=== PATIENT | female | born 1945 | race Caucasian/White ===

== ENCOUNTER 2019-09-09 11:49 | Inpatient (IN) | payer MEDICARE, OTHER, SELFPAY ==
[2019-09-09 11:54] VITALS: BP 163/58; PULSE 71; RESP 18; TEMP 36.9; O2SAT 98
--- NOTE | 2019-09-09 12:16 | DI.RAD_ITS ---
EXAM: XR HIP LT COMPLETE AP PELVIS INDICATION: s/p fall, r/o fracture. COMPARISON: No exams were available for comparison TECHNIQUE: 2D digital imaging was performed. FINDINGS: There is a subcapital fracture of the left femur. There is some impaction but only slight angulatio n. No additional fractures are seen. The hip joint spaces are well maintained. There is mild bilat eral acetabular spurring. IMPRESSION: Subcapital fracture of the left femur with mild impaction.
--- NOTE | 2019-09-09 12:16 | DI.RAD_ITS ---
EXAM: XR CHEST 2V PA LATERAL INDICATION: possible hip fracture, r/o acute disease. COMPARISON: No exams were available for comparison TECHNIQUE: 2D digital imaging was performed. FINDINGS: Heart size is normal. The aorta is mildly tortuous. Lungs show mild scarring. No infiltrate, effu tomás or pneumothorax seen. There are no thoracic compression fractures. IMPRESSION: No acute abnormality.
--- NOTE | 2019-09-09 12:19 | ED.GENADUL_ITS ---
Discharge Plan Disposition Patient Disposition: [facility] INPATIENT Condition: Stable Discharge Details Chief Complaint: Orthopedic Clinical Impression: Fracture of left hip Admit Date/Time: 09/09/19 14:39 Admit Provider: Uzair Lara Attending Provider: Uzair Lara Primary Care Provider: Josy Oliver ED Provider: Chloe Voss Discharge Data Discharge Date/Time-TO BE ENTERED AT DEPARTURE: 09/09/19 15:41 Discharge Physician: Chloe Voss Medical Decision Making 1200 -- [id number] female presents with left hip pain after fall while walking her dog prior to arrival. She is complaining of pain in her left groin. Vitals within normal limits. She appears in no acute distress. She has pain with any slight movement in her left groin with very minimal tenderness palpation in this area. She is neurovascularly intact. No obvious deformities. No left lower extremity shortening or external rotation. Patient declines dose of narcotic pain medication. Will give a dose of Tylenol and sent for left hip and pelvis x-ray as well as chest x-ray. 1310 --hip x-ray notes a left femoral neck fracture. Chest x-ray negative. Patient ate cookies on the way to the ER. Case discussed with Dr. Williamson who will take patient to the operating room tomorrow. Case d/w Dr. Lara who accepts pt for admission. Screening labs reviewed and unremarkable. EKG notes a rate of 77, sinus with no acute ST ischemic changes. Medical Records Medical records reviewed: Yes I reviewed the patient's medical records. Imaging Data Radiologic Study: Radiologist's impression: XR CHEST 2V PA LATERAL INDICATION: possible hip fracture, r/o acute disease. COMPARISON: No exams were available for comparison TECHNIQUE: 2D digital imaging was performed. FINDINGS: Heart size is normal. The aorta is mildly tortuous. Lungs show mild scarring. No infiltrate, effusion or pneumothorax seen. There are no thoracic comp ression fractures. IMPRESSION: No acute abnormality. XR HIP LT COMPLETE AP PELVIS INDICATION: s/p fall, r/o fracture. COMPARISON: No exams were available for comparison TECHNIQUE: 2D digital imaging was performed. FINDINGS: There is a subcapital fracture of the left femur. There is some impaction but only slight angulation. No additional fractures are seen. The hip joint spaces are well maintained. There is mild bilateral acetabular spurring. IMPRESSION: Subcapital fracture of the left femur with mild impaction. Lab Data Lab results reviewed: Yes I reviewed the patient's lab results. Labs: Laboratory Tests Range/Units 09/09/19 09/09/19 13:45 13:45 WBC (4.4-10.8) k/cumm 10.91 H RBC (4.00-5.20) m/cumm 4.27 Hgb (12.0-15.5) g/dL 12.0 Hct (36.0-46.0) % 37.1 MCV (80-95) fL 86.9 MCH (27.0-33.0) pg 28.1 MCHC (32.0-36.0) g/dL 32.3 RDW (11.7-14.6) % 13.7 Plt Count (130-400) x1000/uL 214 MPV (8.0-11.0) fL 9.1 Immature Gran % 0.2 Neutrophils % 84.1 Lymphocytes % 9.3 Monocytes % 6.0 Eosinophils % 0.1 Basophils % 0.3 Absolute Neutrophils (1.2-6.7) k/cumm 9.18 H Absolute Lymphocytes (1.2-3.4) k/cumm 1.01 L Absolute Monocytes (0.11-0.7) k/cumm 0.65 Absolute Eosinophils (0.0-0.7) k/cumm 0.01 Absolute Basophils (0.0-0.2) k/cumm 0.03 Sodium (136-145) mmol/L 141 Potassium (3.5-5.1) mmol/L 4.5 Chloride (98-107) mmol/L 105 Carbon Dioxide (21.0-32.0) mmol/L 28.9 Anion Gap (3-11) mmol/L 7.1 BUN (7-18) mg/dL 20 H Creatinine (0.55-1.02) mg/dL 0.97 Estimated GFR/1.73 m2 (mL/min/1.73m2) 55.83 Glucose (70-100) mg/dL 144 H Calcium (8.5-10.1) mg/dL 9.0 Magnesium (1.8-2.4) mg/dL 1.9 Total Bilirubin (0.2-1.0) mg/dL 0.3 AST (15-37) U/L 21 ALT (14-59) U/L 25 Alkaline Phosphatase (46-116) U/L 56 Troponin I (0.00-0.06) ng/mL < 0.05 Total Protein (6.4-8.2) g/dL 6.8 Albumin (3.4-5.0) g/dL 3.6 ECG Data Attestation: I personally reviewed and interpreted this ECG (s) as follows: Interpretation: rate of 77bpm, sinus, PACs. No acute ST elevation or depression. AK 134. QTc 444. QRS 88. HPI General Mode of arrival: ambulatory . Date/Time Provider Initiated Documentation: 09/09/19 11:52 . Limitations to Documentation: no limitations . Information obtained by: patient . HPI Narrative: Pt is a 74yo F who presents to the ED w/ a c/o left hip pain after fall while walking her dog. Patient states she was walking her dog when she slipped on the ground onto her left hip. She is complaining of pain in her left groin. She denies head injury, LOC, vomiting, chest pain, shortness of breath, neck pain or back pain. She denies any other extremity pain or injury. She has not taken any medication for pain. Related Data Home Medications Medication Instructions Recorded Confirmed calcium carbonate-vitamin D3 1 ea PO DAILY 03/03/14 09/09/19 cholecalciferol (vitamin D3) 800 unit PO DAILY 03/03/14 09/09/19 [Vitamin D] ibuprofen 200 mg PO PRN 03/03/14 09/09/19 Allergies Allergy/AdvReac Type Severity Reaction Status Date / Time Tetanus Vaccines and Toxoid AdvReac Intermediate FEVER Unverified 09/09/19 11:58 aspirin AdvReac Unknown BLEEDING Unverified 09/09/19 11:58 SALMON OIL-1000 AdvReac Intermediate GI Uncoded 09/09/19 11:58 INTOLERANCE General Stated Complaint: Orthopedic RAJESH: 3 Review of Systems All systems reviewed & are unremarkable except as noted in HPI and below Constitutional Constitutional: Reports as per HPI, Denies chills and Denies fever(s) Eyes Eyes: Denies blurry vision ENT Ears, Nose, Mouth, and Throat: Denies dizziness, Denies sore throat and Denies throat swelling Cardiovascular Cardiovascular: Denies chest pain and Denies dyspnea Respiratory Respiratory: Denies cough and Denies dyspnea Gastrointestinal Gastrointestinal: Denies abdominal pain, Denies diarrhea and Denies vomiting Genitourinary Genitourinary: Denies hematuria and Denies dysuria Musculoskeletal Musculoskeletal: Denies back pain, Denies numbness and Reports other (Left groin pain.) Integumentary/Breasts Skin/Breast: Denies lesions and Denies rash Neurologic Neurologic: Denies dizziness, Denies focal weakness and Denies numbness Allergic/Immunologic Allergic/Immunologic: Denies throat swelling [facility] Medical History No significant past medical history (Acute) Surgical History History of knee surgery (Acute) History of tonsillectomy (Chronic) Family History Mother , 46 Lymphoma Father , 74 Neoplasm PANCREATIC Pancreatic cancer Maternal Grandfather , 80 No problems noted. Paternal Grandfather Stomach cancer Maternal Grandmother Stroke Paternal Grandmother , 70 Heart disease Social History Smoking/Tobacco Use Status: Former Tobacco Use Tobacco: How many years used: 10 Second Hand Exposure: No Alcohol Intake: current Alcohol Intake frequency: holidays/special occasions only Alcohol type: wine Drug use: Never Substance use type: does not use Caregiver/Support person: No Household members: spouse Housing: house Communication Needs: None Pets and animals: Yes Pets and animals: cat(s) and dog(s) Sexually active: No Do you think of yourself as: straight/heterosexual Current gender identity: female What is your relationship status?: How often do you talk on the phone with friends or family?: three or more times per week How often do you get together with friends or relatives?: once per week How often do you attend lutheran or islam services?: decline to answer Do you belong to any clubs or organized social groups?: yes Panel score (0-1 are the most socially isolated patients): 3 What type of physical activity do you participate in: walking Duration: 45-60 minutes/day Frequency: daily Maribell/Jain: None Special maribell needs: No Seatbelt use: always Helmet use: Yes Helmet use: always 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 Do you feel safe at home: Yes Do you feel safe in your relationship?: Yes Exam Const General: cooperative, healthy appearing and no acute distress [facility] Head: normal to inspection Face and sinus: normal facial exam Eyes General: appearance normal, both eyes and all related structures Pupils: PERRL EOM: EOM intact bilaterally Neck Neck: normal visual inspection and No submandibular swelling Lymphatic: no lymphadenopathy noted Chest Chest: normal inspection of the chest, normal palpation of entire chest wall and no tenderness Resp Effort & Inspection: normal respiratory effort and able to speak in complete sentences Auscultation: clear to auscultation bilaterally Cardio Rate: regular rate Rhythm: regular rhythm GI Inspection: normal to inspection Palpation: soft, not firm, not rigid and nontender Auscultation: normal bowel sounds Back/Spine/Pelvis Cervical Spine: No cervical spinal tenderness Thoracic/Lumbar Spine: thoracic and lumbar spine normal to inspection, No thorac ic spinal tenderness and No lumbar spinal tenderness Pelvis: no pain with anterior-posterior compression and no pain with lateral compression Skin General skin exam: no rashes or lesions noted Neuro General: alert, awake and oriented x3 Cognition: normal cognition Speech: speech normal Motor: muscle tone normal throughout Sensory Exam: no sensory deficits noted Extrem General: normal to inspection, full ROM, normal capillary refill, no calf tenderness bilaterally and no edema Upper/lower leg/hip images: 1. Pain in this location with certain movements. Minimal tenderness to palpation of L groin. No evidence of ecchymosis, erythema, edema or open wounds. Limited range of motion due to pain. Other: Bilateral upper extremities and right lower extremity normal to inspection without pain with range of motion. Remainder of left lower extremity normal to inspection without tenderness to left thigh, left knee, left lower leg, ankle or foot. Bilateral DP/PT pulses intact. Psych Appearance: grossly normal Mental Status: mental status grossly normal Speech and Movement: speech and movement normal Affect: normal affect Course Vital Signs Vital signs: Vital Signs Temperature 98.4 F 09/09/19 11:54 Pulse 71 09/09/19 11:54 Respiratory Rate 18 09/09/19 11:54 Blood Pressure 163/58 H 09/09/19 11:54 Pulse Oximetry 98 09/09/19 11:54 Temperature 98.4 F 09/09/19 11:54 Temperature Source Temporal Artery Scan 09/09/19 11:54 Pulse 71 09/09/19 11:54 Respiratory Rate 18 09/09/19 11:54 Respiratory Effort Non-Labored 09/09/19 11:59 Blood Pressure 163/58 H 09/09/19 11:54 Blood Pressure Position Supine 09/09/19 11:54 Pulse Oximetry 98 09/09/19 11:54 Oxygen Delivery Method Room Air 09/09/19 11:54 Oxygen Flow Rate 0 09/09/19 11:54 Pain Level 8 09/09/19 11:54
[2019-09-09] MEDS: Acetaminophen 325 MG TAB 650 MG PO (12:23)
[2019-09-09] MEDS: Acetaminophen 325 MG TAB (12:36)
[2019-09-09 13:51] LABS: Abs Immature Grans 0.02 k/cumm (0.0-0.09); Absolute Basophil Count 0.03 k/cumm (0.0-0.2); Absolute Eosinophil Count 0.01 k/cumm (0.0-0.7); Absolute Monocyte Count 0.65 k/cumm (0.11-0.7); Absolute Neutrophil Count 9.18 k/cumm (1.2-6.7); Basophils % 0.3; Eosinophils % 0.1; HCT 37.1 % (36.0-46.0); Immature Grans % 0.2; Lymphocytes % 9.3; Mean Corp. HGB Concentration 32.3 g/dL (32.0-36.0); Mean Corpuscular Hemoglobin 28.1 pg (27.0-33.0); Mean Corpuscular Volume 86.9 fL (80-95); Mean Platelet Volume 9.1 fL (8.0-11.0); Neutrophils % 84.1; Platelet Count 214 x1000/uL (130-400); RBC 4.27 m/cumm (4.00-5.20); RBC Distribution Width 13.7 % (11.7-14.6); White Blood Cell Count 10.91 k/cumm (4.4-10.8)
[2019-09-09 13:54] LABS: Absolute Lymphocyte Count 1.01 k/cumm (1.2-3.4)
[2019-09-09 14:07] VITALS: BP 158/62; PULSE 75; RESP 14; TEMP 37.2; O2SAT 94
[2019-09-09 14:09] LABS: ALT 25 U/L (14-59); AST 21 U/L (15-37); Albumin 3.6 g/dL (3.4-5.0); Alkaline Phosphatase 56 U/L (46-116); Anion Gap 7.1 mmol/L (3-11); BUN 20 mg/dL (7-18); Bilirubin, Total 0.3 mg/dL (0.2-1.0); CO2 28.9 mmol/L (21.0-32.0); CREATININE 0.97 mg/dL (0.55-1.02); Chloride 105 mmol/L (98-107); Estimated GFR 55.83 (mL/min/1.73m2); Glucose 144 mg/dL (70-100); Magnesium 1.9 mg/dL (1.8-2.4); Potassium 4.5 mmol/L (3.5-5.1); Sodium 141 mmol/L (136-145); Total Protein 6.8 g/dL (6.4-8.2)
[2019-09-09 14:11] LABS: Troponin I < 0.05 ng/mL (0.00-0.06)
[2019-09-09] MEDS: Normal Saline Flush 10 ML SYR IVP ×2 (14:15→18:15)
--- NOTE | 2019-09-09 14:31 | W.PM.PROGNOT ---
Date of Service Date of service: 09/09/19 Time of Service: 14:31 Objective Objective Clinical Data: Abnormal lab results 09/09/19 09/09/19 Range/Units 13:45 13:45 WBC 10.91 H (4.4-10.8) k/cumm Absolute Neutrophils 9.18 H (1.2-6.7) k/cumm Absolute Lymphocytes 1.01 L (1.2-3.4) k/cumm BUN 20 H (7-18) mg/dL Glucose 144 H (70-100) mg/dL Vital Signs Temperature 37.2 C 09/09/19 14:07 Temperature Source Skin 09/09/19 14:07 Pulse 75 09/09/19 14:07 Respiratory Rate 14 09/09/19 14:07 Respiratory Effort Non-Labored 09/09/19 11:59 Blood Pressure 158/62 H 09/09/19 14:07 Blood Pressure Position Supine 09/09/19 11:54 Pulse Oximetry 94 L 09/09/19 14:07 Oxygen Delivery Method Room Air 09/09/19 14:07 Oxygen Flow Rate 0 09/09/19 14:07 Pain Level 0 09/09/19 14:07 Intake & Output 09/08/19 09/09/19 09/09/19 23:59 11:59 23:59 Weight 65.6 kg Laboratory Results WBC 10.91 k/cumm (4.4-10.8) H 09/09/19 13:45 RBC 4.27 m/cumm (4.00-5.20) 09/09/19 13:45 Hgb 12.0 g/dL (12.0-15.5) 09/09/19 13:45 Hct 37.1 % (36.0-46.0) 09/09/19 13:45 MCV 86.9 fL (80-95) 09/09/19 13:45 MCH 28.1 pg (27.0-33.0) 09/09/19 13:45 MCHC 32.3 g/dL (32.0-36.0) 09/09/19 13:45 RDW 13.7 % (11.7-14.6) 09/09/19 13:45 Plt Count 214 x1000/uL (130-400) 09/09/19 13:45 MPV 9.1 fL (8.0-11.0) 09/09/19 13:45 Immature Gran % 0.2 09/09/19 13:45 Neutrophils % 84.1 09/09/19 13:45 Lymphocytes % 9.3 09/09/19 13:45 Monocytes % 6.0 09/09/19 13:45 Eosinophils % 0.1 09/09/19 13:45 Basophils % 0.3 09/09/19 13:45 Absolute Neutrophils 9.18 k/cumm (1.2-6.7) H 09/09/19 13:45 Absolute Lymphocytes 1.01 k/cumm (1.2-3.4) L 09/09/19 13:45 Absolute Monocytes 0.65 k/cumm (0.11-0.7) 09/09/19 13:45 Absolute Eosinophils 0.01 k/cumm (0.0-0.7) 09/09/19 13:45 Absolute Basophils 0.03 k/cumm (0.0-0.2) 09/09/19 13:45 Sodium 141 mmol/L (136-145) 09/09/19 13:45 Potassium 4.5 mmol/L (3.5-5.1) 09/09/19 13:45 Chloride 105 mmol/L (98-107) 09/09/19 13:45 Carbon Dioxide 28.9 mmol/L (21.0-32.0) 09/09/19 13:45 Anion Gap 7.1 mmol/L (3-11) 09/09/19 13:45 BUN 20 mg/dL (7-18) H 09/09/19 13:45 Creatinine 0.97 mg/dL (0.55-1.02) 09/09/19 13:45 Estimated GFR/1.73 m2 55.83 (mL/min/1.73m2) 09/09/19 13:45 Glucose 144 mg/dL (70-100) H 09/09/19 13:45 Calcium 9.0 mg/dL (8.5-10.1) 09/09/19 13:45 Magnesium 1.9 mg/dL (1.8-2.4) 09/09/19 13:45 Total Bilirubin 0.3 mg/dL (0.2-1.0) 09/09/19 13:45 AST 21 U/L (15-37) 09/09/19 13:45 ALT 25 U/L (14-59) 09/09/19 13:45 Alkaline Phosphatase 56 U/L (46-116) 09/09/19 13:45 Troponin I < 0.05 ng/mL (0.00-0.06) 09/09/19 13:45 Total Protein 6.8 g/dL (6.4-8.2) 09/09/19 13:45 Albumin 3.6 g/dL (3.4-5.0) 09/09/19 13:45
--- NOTE | 2019-09-09 15:46 | W.PM.HP.N ---
Assessment and Plan Assessment and plan (1) Subcapital fracture of left femur: Status: Acute Assessment and plan: Status post mechanical fall while walking her dog. She is scheduled for left hip replacement tomorrow with Dr. Williamson. IV Acetaminophen and morphine for pain. Place morales for comfort. She will be NPO after midnight in preparation for surgery tomorrow. Continue IV fluids overnight. Repeat H&H tomorrow morning. History of Present Illness History of Present Illness Chief Complaint: Left groin pain after fall. Narrative: Maribell Alexander is a 74 year old female otherwise healthy, who presented to the ED today after a fall while walking her dog. In the ED, her labs revealed mild leukocytosis. She had an x-ray of her left hip which showed a left femoral neck fracture. Chest x-ray was negative. The ER attending provider discussed her case with Dr. Williamson who is planning to take the patient to the OR tomorrow for Left hip replacement. She was admitted to the med/surg floor for further evaluation and management. At the time of her admission, she denies pain in the left hip/groin, she had acetaminophen in the ED which relieved her pain. She denies dizziness or lightheadedness, shortness of breath, coughing, wheezing, chest pain/pressure, palpitations, nausea, vomiting or diarrhea. She has a remote smoking history, she smoked in her 20s. She occasionally drinks alcohol, approximately 3 glasses of wine per month. She recently had cataract surgery. Review of Systems All systems reviewed & are unremarkable except as noted in HPI and below PFSH Medical History No significant past medical history (Acute) Surgical History History of knee surgery (Acute) History of tonsillectomy (Chronic) Family History Mother , 46 Lymphoma Father , 74 Neoplasm PANCREATIC Pancreatic cancer Maternal Grandfather , 80 No problems noted. Paternal Grandfather Stomach cancer Maternal Grandmother Stroke Paternal Grandmother , 70 Heart disease Social History Smoking/Tobacco Use Status: Former Tobacco Use Tobacco: How many years used: 10 Second Hand Exposure: No Alcohol Intake: current Alcohol Intake frequency: holidays/special occasions only Alcohol type: wine Drug use: Never Substance use type: does not use Caregiver/Support person: No Household members: spouse Housing: house Communication Needs: None Pets and animals: Yes Pets and animals: cat(s) and dog(s) Sexually active: No Do you think of yourself as: straight/heterosexual Current gender identity: female What is your relationship status?: How often do you talk on the phone with friends or family?: three or more times per week How often do you get together with friends or relatives?: once per week How often do you attend roman catholic or sabianism services?: decline to answer Do you belong to any clubs or organized social groups?: yes Panel score (0-1 are the most socially isolated patients): 3 What type of physical activity do you participate in: walking Duration: 45-60 minutes/day Frequency: daily Maribell/Buddhism: None Special maribell needs: No Seatbelt use: always Helmet use: Yes Helmet use: always 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 Do you feel safe at home: Yes Do you feel safe in your relationship?: Yes Meds Home Medications and Allergies Home Medications Medication Instructions Recorded Confirmed Type calcium carbonate-vitamin D3 1 ea PO DAILY 03/03/14 09/09/19 History cholecalciferol (vitamin D3) 800 unit PO DAILY 03/03/14 09/09/19 History [Vitamin D] ibuprofen 200 mg PO PRN 03/03/14 09/09/19 History Allergies Allergy/AdvReac Type Severity Reaction Status Date / Time Tetanus Vaccines and Toxoid AdvReac Intermediate FEVER Unverified 09/09/19 11:58 aspirin AdvReac Unknown BLEEDING Unverified 09/09/19 11:58 SALMON OIL-1000 AdvReac Intermediate GI Uncoded 09/09/19 11:58 INTOLERANCE Exam Narrative Exam Narrative: General: 74 year old female, laying in bed with knees bent, alert and oriented, in NAD. HEENT: normocephalic, atraumatic, pupils equal and round, EOMI, mucous membranes moist. Neck: supple, no JVD. Cardiovascular: heart has regular rate with occasional extra beat. She has a 1-2/6 murmur noted at the LSB. Respiratory: respirations even and unlabored, lung sounds clear to auscultation throughout. GI: normoactive bowel sounds, soft, nontender on palpation, nondistended. Extremities: No ecchymosis around the left hip/groin. +Discomfort on palpation. No edema to the lower extremities, pedal pulses palpable bilaterally. Results Labs Result diagrams: 09/09/19 13:45 09/09/19 13:45 Labs: Laboratory Results - last 24 hr 09/09/19 09/09/19 09/09/19 13:45 13:45 14:42 WBC 10.91 H RBC 4.27 Hgb 12.0 Cancelled Hct 37.1 Cancelled MCV 86.9 MCH 28.1 MCHC 32.3 RDW 13.7 Plt Count 214 MPV 9.1 Immature Gran % 0.2 Neutrophils % 84.1 Lymphocytes % 9.3 Monocytes % 6.0 Eosinophils % 0.1 Basophils % 0.3 Absolute Neutrophils 9.18 H Absolute Lymphocytes 1.01 L Absolute Monocytes 0.65 Absolute Eosinophils 0.01 Absolute Basophils 0.03 Sodium 141 Potassium 4.5 Chloride 105 Carbon Dioxide 28.9 Anion Gap 7.1 BUN 20 H Creatinine 0.97 Estimated GFR/1.73 m2 55.83 Glucose 144 H Calcium 9.0 Magnesium 1.9 Total Bilirubin 0.3 AST 21 ALT 25 Alkaline Phosphatase 56 Troponin I < 0.05 Total Protein 6.8 Albumin 3.6 Last Vital Signs Temp 37.2 C 09/09/19 14:07 Pulse 75 09/09/19 14:07 Resp 14 09/09/19 14:07 BP 158/62 H 09/09/19 14:07 Pulse Ox 94 L 09/09/19 14:07
[2019-09-09 15:56] VITALS: BP 174/75; PULSE 77; RESP 17; TEMP 36.7; O2SAT 97
[2019-09-09 16:15] VITALS: BP 158/62; PULSE 75; RESP 14; TEMP 37.2; O2SAT 94
[2019-09-09 16:19] VITALS: BP 174/75; PULSE 77; RESP 17; TEMP 36.7; O2SAT 97
[2019-09-09] MEDS: Normal Saline 1,000 ML 75 ML IV (18:15)
[2019-09-09] MEDS: ACETAMINOPHEN 1,000 MG/100 ML BTL 400 MG IVPB (19:55)
--- NOTE | 2019-09-09 20:13 | W.ORTHOCONSU ---
Date of service: 09/09/19 Time of Service: 14:13 History of Present Illness Narrative: Maribell is a 74-year-old active female who was walking her dog today. He slipped and fell directly on her left side and had immediate pain. He is unable to ambulate. She is brought to the emergency department and diagnosed with a subcapital femoral neck fracture on the left side. She denies having any premorbid hip pain. She denies any head trauma or loss of consciousness. She denies any current numbness or tingling. She is otherwise healthy with no major medical issues. She uses no assistive device at baseline. She ambulates a minimum of 2 to 3 miles per day and lives relatively independently and actively. Consults Consult date: 09/09/19 Requesting physician: Chloe Voss Consult Reason Left hip fracture Assessment and Plan Assessment and plan (1) Subcapital fracture of left femur: Status: Acute Assessment and plan: Maribell is a 74-year-old active female who has a left subcapital femoral neck fracture. I had a long discussion with Maribell and her partner about this injury. I would not recommend nonoperative treatment given the necessary time of immobilization bedrest required. For operative treatment, there are 2 primary options. Given that this is a valgus impacted fracture, historically this was treated with cannulated screw fixation. However, this does have a significant risk of failure, nearing 20%. I am concerned that the fracture line is visible medially with what appears to be some translation of the femoral head laterally in addition to comminution seen laterally. There is also the appearance of some significant shortening. These variables lead to a slightly higher risk of predicted failure. While she is 74 years old, she is very active and independent. She has no medical issues. While I do think this is possible treat with cannulated screws I am concerned about delayed failure such as avascular necrosis, excessive shortening, and loss of hip motion. I had a long discussion about the pros and cons of each treatment option. With the patient, it was decided that a hip replacement affords her the least amount of lifetime risk and the greatest possibility of her return to activity as soon as possible. I discussed the technical pearls of the procedure. I also reviewed the risk to include bleeding, infection, pain, stiffness, damage to nerves and vessels, damage to muscles and tendons, numbness, instability, leg length inequality, blood clot. Despite these risk, she elects to proceed. Qualifiers: Encounter type: initial encounter Fracture type: closed Qualified Code(s): S72.012A - Unspecified intracapsular fracture of left femur, initial encounter for closed fracture Review of Systems All systems reviewed & are unremarkable except as noted in HPI and below PFSH Medical History No significant past medical history (Acute) Surgical History History of cataract surgery (Chronic) History of knee surgery (Acute) Open lateral procedure History of tonsillectomy (Chronic) Family History Mother , 46 Lymphoma Father , 74 Neoplasm PANCREATIC Pancreatic cancer Maternal Grandfather , 80 No problems noted. Paternal Grandfather Stomach cancer Maternal Grandmother Stroke Paternal Grandmother , 70 Heart disease Social History Smoking/Tobacco Use Status: Former Tobacco Use Tobacco: How many years used: 10 Second Hand Exposure: No Alcohol Intake: current Alcohol Intake frequency: holidays/special occasions only Alcohol type: wine Drug use: Never Substance use type: does not use Caregiver/Support person: No Household members: spouse Housing: house Communication Needs: None Pets and animals: Yes Pets and animals: cat(s) and dog(s) Sexually active: No Do you think of yourself as: straight/heterosexual Current gender identity: female What is your relationship status?: How often do you talk on the phone with friends or family?: three or more times per week How often do you get together with friends or relatives?: once per week How often do you attend mandaen or yazidism services?: decline to answer Do you belong to any clubs or organized social groups?: yes Panel score (0-1 are the most socially isolated patients): 3 What type of physical activity do you participate in: walking Duration: 45-60 minutes/day Frequency: daily Maribell/Worship: None Special maribell needs: No Seatbelt use: always Helmet use: Yes Helmet use: always Drive intox 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 There is no ecchymosis. There is no notable swelling. The groin fold shows no signs of infection or skin breakdown. There is pain to palpation over the left hip. Range of motion was not tested. No significant pain over the knee, lower leg, foot or ankle. Intact ankle dorsiflexion, plantarflexion, EHL, FHL. Sensation intact light touch over the deep and superficial peroneal nerves and tibial nerve. The foot is warm and well-perfused with a palpable PT and DP pulse. Results Last Vital Signs Temp 37.3 C 09/10/19 03:40 Pulse 69 09/10/19 03:40 Resp 18 09/10/19 03:40 BP 152/78 H 09/10/19 03:40 Pulse Ox 96 09/10/19 03:40 Labs Result diagrams: 09/09/19 13:45 09/09/19 13:45 Labs: Laboratory Results - last 24 hr 09/09/19 09/09/19 09/09/19 13:45 13:45 14:42 WBC 10.91 H RBC 4.27 Hgb 12.0 Cancelled Hct 37.1 Cancelled MCV 86.9 MCH 28.1 MCHC 32.3 RDW 13.7 Plt Count 214 MPV 9.1 Immature Gran % 0.2 Neutrophils % 84.1 Lymphocytes % 9.3 Monocytes % 6.0 Eosinophils % 0.1 Basophils % 0.3 Absolute Neutrophils 9.18 H Absolute Lymphocytes 1.01 L Absolute Monocytes 0.65 Absolute Eosinophils 0.01 Absolute Basophils 0.03 Sodium 141 Potassium 4.5 Chloride 105 Carbon Dioxide 28.9 Anion Gap 7.1 BUN 20 H Creatinine 0.97 Estimated GFR/1.73 m2 55.83 Glucose 144 H Calcium 9.0 Magnesium 1.9 Total Bilirubin 0.3 AST 21 ALT 25 Alkaline Phosphatase 56 Troponin I < 0.05 Total Protein 6.8 Albumin 3.6 Imaging Imaging Studies: X-ray of the left hip demonstrates a valgus impacted subcapital femoral neck fracture. This would be classified a Garden 1. There is a clear medial fracture plane with some lateral translation of the head and notable valgus angulation. Very minimal posterior angulation on the lateral.
[2019-09-09] MEDS: Melatonin 3 MG TAB PO (22:05)
[2019-09-09 23:36] VITALS: BP 145/70; PULSE 72; RESP 16; TEMP 38.3; O2SAT 95
[2019-09-10] VITALS (8 sets, daily range): BP systolic 125–169; BP diastolic 58–80; PULSE 62–74; RESP 16–18; TEMP 35.8–37.5; O2SAT 94–97
[2019-09-10] MEDS: ACETAMINOPHEN 1,000 MG/100 ML BTL 400 MG IVPB ×2 (03:58→12:12)
[2019-09-10 06:54] LABS: HCT 35.7 % (36.0-46.0); HGB 11.4 g/dL (12.0-15.5)
[2019-09-10] MEDS: Normal Saline 1,000 ML 75 ML IV ×2 (07:00→17:16)
--- NOTE | 2019-09-10 09:23 | PDOC.CMIN ---
- If Service Date Differs Date of service: 09/10/19 Time of Service: 09:23 Care Management Initial Assess REASON FOR HOSPITALIZATION:: subcapital fracture of left femur PAST MEDICAL HISTORY/PAST SURGICAL HISTORY:: Medical History: No significant past medical history (Acute). Surgical History: History of knee surgery (Acute). History of tonsillectomy (Chronic) PREVIOUS FUNCTIONAL STATUS/SOCIAL/FAMILY SUPPORTS:: Maribell lives with her in a single family 2 story house in [place]. They do not have any children but they do have 2 dogs and a cat. Maribell is independent at baseline and receives no services in the community. CURRENT FUNCTIONAL STATUS:: Maribell was sitting up in bed awaiting surgery when CM met with her. She was pleasant and cooperative and engaged readily in conversation. Maribell anticipates that she will go home with no services. ADVANCE DIRECTIVES:: On file. [facility] Ad[facility] Garay Has patient been provided with information about the portal?: Yes Did the patient sign up for the portal?: No CODE STATUS:: Full Code INSURANCE COVERAGE / FINANCIAL ISSUES:: Medicare. [employer] CURRENT HOME/COMMUNITY SERVICES/EQUIPMENT:: none PRIMARY CARE PHYSICIAN:: Josy Oliver POTENTIAL DISCHARGE NEEDS:: Follow up with PCP and discharge plan of care PATIENT/FAMILY EDUCATION NEEDS:: Discharge plan, limitations, follow up plan, Ask Me Three TRANSPORTATION:: via private vehicle with PLAN:: Maribell yilizeyady be discharged home with no services. She will transport via private vehicle with . She will follow up with her surgeon and discharge plan of care. CM will continue to support patient, family and discharge planning needs.
[2019-09-10] MEDS: Normal Saline Flush 10 ML SYR IVP ×2 (10:24→17:15)
--- NOTE | 2019-09-10 10:59 | W.PM.PROGNOT ---
Date of Service Date of service: 09/10/19 Time of Service: 10:59 Assessment and Plan Assessment and plan (1) Subcapital fracture of left femur: Status: Acute Assessment and plan: Status post mechanical fall while walking her dog. She is scheduled for left hip replacement today with Dr. Williamson. Continue scheduled IV Acetaminophen with PRN morphine for pain. Continue morales for comfort. She is NPO for surgery today. Continue IV fluids. Repeat H&H this morning shows slight decrease, expected with IV fluids running. Continue to follow. Consult PT after the surgery. Qualifiers: Encounter type: initial encounter Fracture type: closed Qualified Code(s): S72.012A - Unspecified intracapsular fracture of left femur, initial encounter for closed fracture (2) DVT prophylaxis: Status: Acute Assessment and plan: DVT prophylaxis per surgery preference. (3) Discharge planning issues: Status: Acute Assessment and plan: She is a full code. She is an otherwise healthy 74-year-old with no comorbidities. She will likely discharge home after the surgery. Physical therapy will be consulted after the procedure. This case was discussed with Dr. Lara who is in agreement. Subjective Subjective Interval history since last seen: Ms Alexander is awaiting surgery for repair of a left subcapital femoral neck fracture. Her pain is well controlled with IV acetaminophen. She denies any numbness or tingling in the left lower extremity. She is looking forward to having the surgery done. She denies dizziness, lightheadedness, chest pain/pressure, palpitations, shortness of breath, coughing, wheezing, nausea, vomiting, diarrhea. Exam Narrative Exam Narrative: General: 74 year old female, laying in bed, alert and oriented, in NAD. HEENT: normocephalic, atraumatic, pupils equal and round, EOMI, mucous membranes moist. Neck: supple, no JVD. Cardiovascular: heart has regular rate with occasional extra beat. Non-tachycardic, no murmur appreciated. Respiratory: respirations even and unlabored, lung sounds clear to auscultation throughout. GI: normoactive bowel sounds, soft, nontender on palpation, nondistended. Extremities: No ecchymosis around the left hip/groin. +Discomfort on palpation. No edema to the lower extremities, pedal pulses palpable bilaterally. Objective Objective Clinical Data: Abnormal lab results 09/09/19 09/09/19 09/10/19 Range/Units 13:45 13:45 06:17 WBC 10.91 H (4.4-10.8) k/cumm Hgb 11.4 L (12.0-15.5) g/dL Hct 35.7 L (36.0-46.0) % Absolute Neutrophils 9.18 H (1.2-6.7) k/cumm Absolute Lymphocytes 1.01 L (1.2-3.4) k/cumm BUN 20 H (7-18) mg/dL Glucose 144 H (70-100) mg/dL Vital Signs Temperature 36.2 C L 09/10/19 07:20 Temperature Source Tympanic 09/10/19 07:20 Pulse 74 09/10/19 07:20 Pulse Rhythm Irregular 09/10/19 08:40 Respiratory Rate 18 09/10/19 07:20 Respiratory Effort Non-Labored 09/10/19 08:40 Respiratory Depth Normal 09/10/19 08:40 Respiratory Pattern Normal 09/10/19 08:40 Blood Pressure 166/80 H 09/10/19 07:20 Blood Pressure Position Supine 09/09/19 11:54 Pulse Oximetry 96 09/10/19 07:20 Oxygen Delivery Method Room Air 09/10/19 07:20 Oxygen Flow Rate 0 09/10/19 07:20 Pain Level 4 09/10/19 10:23 Comment 09/09/19 15:56 Intake & Output 09/09/19 09/09/19 09/10/19 11:59 23:59 11:59 Intake Total 100 / 100 1066.25 / 1066.25 Output Total 1100 / 1100 375 / 375 Balance -1000 / -1000 691.25 / 691.25 Weight 65.6 kg 65.6 kg Intake: IV 100 / 100 1066.25 / 1066.25 Output: Urine 1100 / 1100 375 / 375 Other: Urine Color Yellow Yellow Urine Appearance Clear Clear Voiding Methods Bedpan Laboratory Results WBC 10.91 k/cumm (4.4-10.8) H 09/09/19 13:45 RBC 4.27 m/cumm (4.00-5.20) 09/09/19 13:45 Hgb 11.4 g/dL (12.0-15.5) L 09/10/19 06:17 Hct 35.7 % (36.0-46.0) L 09/10/19 06:17 MCV 86.9 fL (80-95) 09/09/19 13:45 MCH 28.1 pg (27.0-33.0) 09/09/19 13:45 MCHC 32.3 g/dL (32.0-36.0) 09/09/19 13:45 RDW 13.7 % (11.7-14.6) 09/09/19 13:45 Plt Count 214 x1000/uL (130-400) 09/09/19 13:45 MPV 9.1 fL (8.0-11.0) 09/09/19 13:45 Immature Gran % 0.2 09/09/19 13:45 Neutrophils % 84.1 09/09/19 13:45 Lymphocytes % 9.3 09/09/19 13:45 Monocytes % 6.0 09/09/19 13:45 Eosinophils % 0.1 09/09/19 13:45 Basophils % 0.3 09/09/19 13:45 Absolute Neutrophils 9.18 k/cumm (1.2-6.7) H 09/09/19 13:45 Absolute Lymphocytes 1.01 k/cumm (1.2-3.4) L 09/09/19 13:45 Absolute Monocytes 0.65 k/cumm (0.11-0.7) 09/09/19 13:45 Absolute Eosinophils 0.01 k/cumm (0.0-0.7) 09/09/19 13:45 Absolute Basophils 0.03 k/cumm (0.0-0.2) 09/09/19 13:45 Sodium 141 mmol/L (136-145) 09/09/19 13:45 Potassium 4.5 mmol/L (3.5-5.1) 09/09/19 13:45 Chloride 105 mmol/L (98-107) 09/09/19 13:45 Carbon Dioxide 28.9 mmol/L (21.0-32.0) 09/09/19 13:45 Anion Gap 7.1 mmol/L (3-11) 09/09/19 13:45 BUN 20 mg/dL (7-18) H 09/09/19 13:45 Creatinine 0.97 mg/dL (0.55-1.02) 09/09/19 13:45 Estimated GFR/1.73 m2 55.83 (mL/min/1.73m2) 09/09/19 13:45 Glucose 144 mg/dL (70-100) H 09/09/19 13:45 Calcium 9.0 mg/dL (8.5-10.1) 09/09/19 13:45 Magnesium 1.9 mg/dL (1.8-2.4) 09/09/19 13:45 Total Bilirubin 0.3 mg/dL (0.2-1.0) 09/09/19 13:45 AST 21 U/L (15-37) 09/09/19 13:45 ALT 25 U/L (14-59) 09/09/19 13:45 Alkaline Phosphatase 56 U/L (46-116) 09/09/19 13:45 Troponin I < 0.05 ng/mL (0.00-0.06) 09/09/19 13:45 Total Protein 6.8 g/dL (6.4-8.2) 09/09/19 13:45 Albumin 3.6 g/dL (3.4-5.0) 09/09/19 13:45
--- NOTE | 2019-09-10 13:58 | PHARADMIT ---
Admission Pharmacy Clinical Review Hip fracture Code Status Full Code Current Weight 65.6 kg Renally Cleared and Narrow Therapeutic Index Meds Crcl ~47.9 mL/min current meds okay QTc Value / Action Taken QTc 444 BP Control, Fever BP 169/75 Tmax 38.3 Electrolytes reviewed within normal limits DVT Prophylaxis none: surgery today, follow up tomorrow/postop Opiate Usage / Scheduled Bowel Regimen Ordered prn/prn Plt/SCr for Heparin / Enoxaparin plt 214 SCr 0.97 INR for Warfarin n/a H/H stable, WBC/Bands h/h 11.4/35.7 wbc 10.91 Antibiotic appropriateness cefazolin preop Cultures and Sensitivities none Surgical ABX d/c within 24 hr postop orders not entered yet, follow up DM control / Insulin Dosing BG 144 none Heart Failure (Check EF%) (KULWANT's, B-Block, Diuretics) none IV to PO Switch n/a Home Meds Reviewed multiple forms of vitamin D increase risk of toxicity Home Meds Not Ordered ibuprofen (has other pain meds ordered) Comments
--- NOTE | 2019-09-10 14:17 | DI.RAD_ITS ---
EXAM: XR HIP RT IN OR CLINICAL HISTORY: Left total hip arthroplasty in OR TECHNIQUE: C-arm fluoroscopy was provided in the OR for Dr. Williamson. COMPARISON: No exams were available for comparison FINDINGS: Hard copy images show placement of a hip prosthesis. Please see procedure note for details. Fluoro Time: 3.9 seconds
[2019-09-10] MEDS: ceFAZolin 2 GM/50 ML BAG IVPB (14:25)
--- NOTE | 2019-09-10 15:15 | CHAPLAIN ---
Maribell was resting in bed when I visited. Her was with her. She told me that she is waiting for surgery this afternoon. She seems comfortable with having the surgery and her seems supportive.
[2019-09-10] MEDS: Bupivacaine 0.25% Pres-Free 30 ML VIAL (16:20)
[2019-09-10] MEDS: Ketorolac 30 MG/ML VIAL (16:20)
[2019-09-10] MEDS: Normal Saline 20 ML VIAL (16:20)
[2019-09-10] MEDS: Ondansetron 4 MG/2 ML VIAL IVP (17:15)
--- NOTE | 2019-09-10 19:31 | W.PM.OP ---
Date of service: 09/10/19 Time of Service: 16:31 Operative Note Operative Note DATE OF PROCEDURE: 09/10/19 PRE-OP DIAGNOSIS: Left Comminuted Subcapital Femoral Neck Fracture POST-OP DIAGNOSIS: same PROCEDURE: Left Anterior Total Hip Arthroplasty SURGEON: Lopez Williamson EPITAXIAL REACTOR TECHNICIAN: Yuli Nolasco ANESTHESIA: spinal ESTIMATED BLOOD LOSS: 400 PATHOLOGY: none sent COMPLICATIONS: None Patient was transported to: PACU Patient's condition: stable Implants: 1. Depuy Hoschton Acetabular Component, 52mm 2. Depuy Acetabular Liner, [id number] 3. Depuy Corail Coxa Vara Femoral Stem, Size 13 4. Depuy Altrx Ceramic Femoral Head, Size 36+1.5mm Indications: I have seen Maribell in consultation for a left femoral neck fracture after a fall. Given the comminution, medial neck fracture line, and active lifestyle, I recommneded total hip replacement. I discussed the technical details of a hip replacement. I explained the risks of the procedure to include, but not limited to, bleeding, infection, pain, stiffness, fracture, damage to nerves and vessels, damage to muscles and tendons, loosening, instability, leg length inequality, need for repeat procedure, blood clot and cardiopulmonary demise. Despite these risks, Maribell elected to proceed. Findings: There was comminution seen medially and laterally at the level of the fracture with notable valgus collapse and lateral translation. Procedure Description: Maribell was greeted in the preoperative holding area where the correct side was identified and marked. The consent was reviewed with the patient and signed. The history and physical was updated. All questions were answered. She was taken back to the operating room. A spinal anesthestic was then administered. The patient was placed into the supine position on the operating room table. The patient was then positioned onto the ARCH table. Both feet were wrapped with Webrill cotton wrap along with Coban. The feet were placed in specialized boots for the ARCH table, well seated within the boot and secured. SCDs were applied. The patient was then slid down onto a peroneal post and the nonoperative leg was secured in a leg huerta attached to the table. The operative side was placed into the ARCH table attachment and bed height and positioning was secured. A preoperative AP pelvis was obtained to serve as a reference for determining leg lengths. Prophylactic antibiotics in the form of Cefazolin were administered. 1g of Tranxemic Acid was given intravenously within 30 minutes of incision. The left leg was then prepped with Chloraprep and draped in a standard fashion. A second prep was performed prior to placing the final shower-curtain type drape with Iodine impregnated skin protection. A timeout to confirm correct identity, side and site, procedure, allergies, anesthesia, and medical concerns was performed. An obliquely oriented incision was made starting lateral to the ASIS and running distal over the Tensor Fascia Kimberlee (TFL) muscle belly toward the fibular head, approximately 10cm. The skin and soft tissue was dissected sharply, through Dayo?s fascia, and to the fascia of the TFL. With the fascia and superior border of the IT band identified, the fascia was incised with a new knife just above any perforators from the IT band. The TFL muscle belly was bluntly dissected away from the fascia and moved laterally. The fat between TFL and rectus was identified to ensure the dissection was not within the TFL. Blunt dissection created space between abductors and the capsule and retractor was placed over the lateral femoral neck. The fibers of the rectus femoris tendon were identified and these were freed from the anterior capsule. A second cobra retractor was placed around the medial femoral neck. The TFL was further retracted laterally to show the deep fascia. Careful dissection through this layer identified three main crossing vessels of the lateral femoral circumflex. These were cauterized in multiple locations and then cut without any noticeable bleeding. The TFL was further released bluntly from the deep fascia to expose anterior hip capsule and fat The Tom orthopaedic retractor was then placed beneath the TFL and against sartorius and medial soft tissues to protect and retract the soft tissues. A T-capsulotomy was then performed starting at the superior lateral acetabulum and moving distally to the intertrochanteric ridge. These capsular flaps were tagged with a No. 1 Ethibond and elevated from within. The capsular flaps were released to the shoulder of the lateral neck and to the lesser trochanter to give excellent visualization of the proximal femur. A neck osteotomy was performed using an oscillating saw based on preoperative templates. This cut started in the shoulder and of the lateral neck and exited medially. The saw was at all times directed medially to avoid injury to the greater trochanter. 6cm of traction was applied to the leg and the osteotomy opened. The femoral head was removed with a corkscrew, making sure to protect the TFL on its exit. This was measured on the back table to determing the starting reamer size. Portions of the rectus obscuring visualization were minimally elevated off the superior acetabulum. An anterior retractor was placed over the anterior wall between capsule and labrum and held with the Gripper retraction system. A posterior retractor was placed similarly. This provided excellent visualization. The contents of the cotyloid fossa were removed with electrocautery and the labrum was removed with a knife. Acetabular reaming began with a 46mm reamer. This first reaming was directed anterior to posterior and medial to get down to the true floor. This was inspected and reamed until the true floor was reached. I then reamed sequentially up to a 52mm reamer where good fit was obtained. The larger reamers were oriented based on anatomical reference of the anterior and lateral serrano to ensure proper abduction and anteversion. Positioning and size was confirmed with the fluoroscopy. A 48mm Depuy [place] acetabular component was selected. The deep tissues were irrigated. The acetabular component was then impacted in a position of about 40-45 degrees of abduction and 15-20 degrees of anteversion, using the patient?s anatomy as the ultimate landmark. Fluoroscopy was used to confirm this. There was excellent entry level mechanical engineer of the acetabular component and the inserting handle was removed. The acetabular liner, Depuy [id number] polyethylene liner, was inserted and lined up with the tines of the acetabular component. There was no soft tissue interposition. The liner was then impacted into position and confirmed to be well-seated. A portion of the anna-articular cocktail was then injected around the acetabulum into the capsule and periosteum. This cocktail consisted of 50cc of 0.25% Bupivicaine and 20cc of Exparel, expanded to a total of 120cc. Traction was released from the femur. The leg was rotated to 120 degrees. Any remaining medial capsule was released until the lesser trochanter was easily palpable. A Vanegas retractor was placed medially. The lateral capsule was further released into the shoulder to allow access to the greater trochanter. A Vanegas retractor was placed over the greater trochanter which allowed the trochanter to flip in front of the capsule for excellent exposure. The leg was brought down into maximal extension and 20 degrees of adduction while ensuring there was no impingement on the acetabulum. Any remnant capsule within the trochanter was released. Piriformis and obturator externis were identified and protected. There was excellent access to the proximal femur. The lateral neck remnant was removed with a rongeur. A blunt canal probe was used to identify the canal and trajectory for later broaching. A box osteotome initiated the broach course. A small curved rasp and a curved curette were used to work laterally. Broaching then began with a size 8 Corail broach. This was inserted manually around the trochanter and into the canal before mallet blows. The broach was seated to a few millimeters below the cut level based on the neck cut and the preoperative template. Sequential broaching was continued until a tight fit was obtained with good rotational control of the femur. A trial coxa vara neck was inserted along with a +1.5 trial head. The leg was brought out of extension and adduction and then reduced with traction and internal rotation. The leg was stable anteriorly in a position of 30 degrees of extension and 90 degrees of external rotation. Fluoroscopy was used to ensure there was no fracture and the stem was seated well. Leg lengths were checked with an AP pelvis and pelvic reference points utilizing Joint Point intraoperative computer analysis. Once content with the desired offset and leg lengths, the leg was brought back into extension, external rotation and adduction. The periosteum and surrounding tissue was injected with remaining portion of the anna-articular cocktail. The proximal femur was irrigated as well as the deep tissues. The Depuy Corail standard collared stem, size 13, was then manually inserted into the proximal femur making sure to control rotation. It was then malleted into position with light blows, giving breaks to allow bone expansion and decrease risk of fracture. The selected Depuy Altrx Ceramic Head, size 36+1.5mm, was then placed onto the clean and dry trunnion and secured with impaction onto the tapered fit. The leg was brought back out of extension and adduction and reduced with traction and internal rotation. Stability was confirmed with no shuck at 90 degrees of external rotation and 30 degrees of extension. No impingement through range of motion arc. Final x-ray images were obtained with fluoroscopy to confirm adequate positioning and no intraoperative fracture. The deep tissues were thoroughly irrigated with a pulse lavage. The second dose of TXA 1g was administered intravenously.The capsule was then reapproximated with the previously placed Ethibond sutures. The TFL fascia was finally closed with a No. 2 Stratafix, barbed suture. Deep tissues were then reapproximated with 0 Vicryl and a running 2-0 Vicryl. The skin was closed with a running 4-0 Monocryl in a subcuticular fashion. This was reinforced with skin glue. A Mepilex silver dressing was applied. At the end of the case, all counts were correct. Maribell was transferred to the hospital bed without difficulty and suffering no apparent complication. Maribell has a good prognosis. Physical therapy will start today and without restrictions, weight-bearing as tolerated. Aspirin 81mg BID will be used for DVT prophylaxis.
[2019-09-10] MEDS: Acetaminophen 500 MG TAB 1000 MG PO (20:23)
[2019-09-10] MEDS: ceFAZolin 1 GM/50 ML BAG IVPB (20:23)
[2019-09-10] MEDS: Celecoxib 200 MG CAP PO (20:24)
[2019-09-11 00:01] VITALS: BP 131/70; PULSE 69; RESP 17; TEMP 36.6; O2SAT 92
[2019-09-11] MEDS: ceFAZolin 1 GM/50 ML BAG IVPB (03:42)
[2019-09-11 07:10] VITALS: BP 142/76; PULSE 72; RESP 17; TEMP 36.7; O2SAT 98
[2019-09-11] MEDS: Celecoxib 200 MG CAP PO (07:42)
[2019-09-11] MEDS: Calcium 600mg/Vit D 200U TAB 1 TAB PO (07:42)
[2019-09-11] MEDS: Aspirin E.C. 81 MG TABEC PO (07:42)
[2019-09-11] MEDS: Cholecalciferol (Vitamin D3) 400 UNIT TAB 800 UNIT PO (07:43)
[2019-09-11] MEDS: Acetaminophen 500 MG TAB 1000 MG PO (07:43)
--- NOTE | 2019-09-11 08:56 | W.PM.DS.N ---
Date of service: 09/11/19 Time of Service: 08:57 DS: Diagnosis Discharge Diagnosis (1) Subcapital fracture of left femur: Status: Acute (2) DVT prophylaxis: Status: Acute (3) Discharge planning issues: Status: Acute Discharge Plan Disposition Patient Disposition: HOME Condition: Stable Discharge Details Chief Complaint: Orthopedic Clinical Impression: Fracture of left hip Reason For Visit: LEFT HIP FRACTURE Admit Date/Time: 09/09/19 14:39 Admit Provider: Lopez Williamson Attending Provider: Lopez Williamson Primary Care Provider: Josy Olvier ED Provider: Chloe Voss Hospital Course Hospital Course: Patient was admitted to the medical/surgical floor for hospice clearance for surgery to fix her left femoral neck fracture. She was taken to the operating room for a total hip replacement for femoral neck fracture on hospital day #2. It was tolerated well without any notable medical, surgical, or anesthetic complications. Mobilization began postoperatively. The morales catheter was removed and voiding spontaneously. Vitals were stable. Physical therapy worked with the patient and was cleared for discharge home. No acute medical issues. Home Meds and New Rx's Prescriptions: New acetaminophen 500 mg tablet 1,000 mg PO Q8H PRN (Reason: pain) Qty: 90 RF: 3 aspirin 81 mg tablet,delayed release (DR/EC) 81 mg PO BID Qty: 28 RF: 0 ibuprofen 600 mg tablet 600 mg PO TID PRNQty: 60 RF: 3 Continued calcium carbonate-vitamin D3 1 EACH tablet 1 ea PO DAILY RF: 0 cholecalciferol (vitamin D3) [Vitamin D3] 400 UNIT tablet 800 unit PO DAILY RF: 0 Discontinued ibuprofen 200 MG tablet 200 mg PO PRN RF: 0 Discharge Instructions Instructions: Total Hip Discharge Instructions Additional Instructions: Dr. Williamson?s Total Hip Discharge Instructions Activity: The most important activity is to walk. You should try to take short walks a few times a day. You have no restrictions on movement or positioning, but do not try to force what you do. You will find some stiffness and weakness with hip flexion (lifting your knee). Do not try to strengthen this too early, continue to practice walking and stairs and this will come. - Outpatient physical therapy can be helpful to help return you to a normal gait and improve your flexibility and strength. This can start around 2 weeks. For some patients, it?s not necessary. Usually this is determined at the time of discharge or at the first post-operative visit. - You should wear the MALIKA hose on both legs for 2 weeks. Dressing: Keep the surgical dressing in place for at least one week. After the first week it may be removed and replace with light gauze and tape or nothing. It may get wet after 3 days but avoid soaking the dressing. If it gets wet, just lightly pat dry. It is important to always keep some gauze between skin folds, especially when you are sitting. Spend some time with the wound exposed when you are lying flat as the incision does wrinkle onto itself. Medications: - You should take Tylenol and an anti-inflammatory Ibuprofen as your primary pain control medications - You will be taking Aspirin 81mg twice a day for DVT prevention unless instructed otherwise. - If you have constipation you should take Colace or Miralax (both [id number]). It takes most people 3-4 days to have a bowel movement. Follow-up: 2 weeks Stand Alone Forms: Nursing Discharge Form Referrals: Lopez Williamson MD [ [facility] STAFF PHYSICIAN] - (Please call Dr. Williamson's office on Friday for a follow up appointment.) Activity:: Activity as Tolerated Equipment/Supplies:: No Equipment Needed Diet:: As Tolerated Discharge Orders Discharge Orders: Discharge Order (Routine); Ordered 09/11/19 Ordered By: Lopez Williamson DS: Summary Status at Discharge Functional status at discharge: uses cane/walker Overall status at discharge: patient is progressing back to baseline Mental Status: mental status grossly normal Speech and Movement: speech and movement normal Mood: congruent mood Affect: normal affect Exam Psych Mental Status: mental status grossly normal Speech and Movement: speech and movement normal Mood: congruent mood Affect: normal affect DS: Data Vitals/I&O Vitals and I&O: Vital Signs Temperature 36.6 C 09/11/19 00:01 Temperature Source Tympanic 09/11/19 00:01 Pulse 69 09/11/19 00:01 Pulse Rhythm Regular 09/11/19 07:48 Respiratory Rate 17 09/11/19 00:01 Respiratory Effort Non-Labored 09/11/19 07:48 Respiratory Depth Normal 09/11/19 07:48 Respiratory Pattern Normal 09/11/19 07:48 Blood Pressure 131/70 09/11/19 00:01 Blood Pressure Position Supine 09/09/19 11:54 Pulse Oximetry 92 L 09/11/19 00:01 Oxygen Delivery Method Room Air 09/11/19 00:01 Oxygen Flow Rate 0 09/11/19 00:01 Pain Level 2 09/11/19 07:43 Comment 09/09/19 15:56 Intake & Output 09/10/19 09/10/19 09/11/19 11:59 23:59 11:59 Intake Total 1066.25 / 2315.00 1248.75 / 2315.00 1202.5 / 1202.5 Output Total 375 / 2575 2200 / 2575 400 / 400 Balance 691.25 / -260.00 -951.25 / -260.00 802.5 / 802.5 Intake: IV 1066.25 / 2315.00 1248.75 / 2315.00 1002.5 / 1002.5 Oral 200 / 200 Output: Urine 375 / 2175 1800 / 2175 400 / 400 Estimated Blood Loss 400 / 400 Other: Urine Color Yellow Yellow Light Yasmin Urine Appearance Clear Clear Clear PFSH Medical History No significant past medical history (Acute) Surgical History History of cataract surgery (Chronic) History of knee surgery (Acute) Open lateral procedure History of tonsillectomy (Chronic) Family History Mother , 46 Lymphoma Father , 74 Neoplasm PANCREATIC Pancreatic cancer Maternal Grandfather , 80 No problems noted. Paternal Grandfather Stomach cancer Maternal Grandmother Stroke Paternal Grandmother , 70 Heart disease Social History Smoking/Tobacco Use Status: Former Tobacco Use Tobacco: How many years used: 10 Second Hand Exposure: No Alcohol Intake: current Alcohol Intake frequency: holidays/special occasions only Alcohol type: wine Drug use: Never Substance use type: does not use Caregiver/Support person: No Household members: spouse Housing: house Communication Needs: None Pets and animals: Yes Pets and animals: cat(s) and dog(s) Sexually active: No Do you think of yourself as: straight/heterosexual Current gender identity: female What is your relationship status?: How often do you talk on the phone with friends or family?: three or more times per week How often do you get together with friends or relatives?: once per week How often do you attend zoroastrian or hinduism services?: decline to answer Do you belong to any clubs or organized social groups?: yes Panel score (0-1 are the most socially isolated patients): 3 What type of physical activity do you participate in: walking Duration: 45-60 minutes/day Frequency: daily Maribell/Yazidism: None Special maribell needs: No Seatbelt use: always Helmet use: Yes Helmet use: always Drive intox or ride w/intox motor pool driver: No Do you feel safe at home: Yes Do you feel safe in your relationship?: Yes
--- NOTE | 2019-09-11 10:14 | IN_ITS ---
Date of service: 09/11/19 Time of Service: 09:40 PT Notes Inpatient Physical Therapy Evaluation Date: 09/11/19 Referring Doctor: Dr. Williamson PT Orders: PT CONSULT: s/p anterior left STACY Precautions: WBAT Patient Profile/Admitting Diagnosis: Patient seen post-op day 1 after left STACY for management of left hip fracture after a fall. PMHX: none Social History/Home Situation: Patient lives in a private home with her . She has a full flight of stairs to enter her home from her garage, with bilat rails. Equipment Owned/DME: [employer] Subjective: Patient states that she fractured her hip after a fall while walking her dog last week. She states that she has been in a great deal of pain since the fall, and awoke this morning feeling great. Her pain has been very well managed, and she's anxious to return home. Objective: General Observation: Resting comfortably in chair at initiation of session. No lines. Mental Status: A and O x3 Pain: Minimal ROM: Right Upper Extremity: WNL Left Upper Extremity: WNL Right Lower Extremity: WNL Left Lower Extremity: Grossly WNL for the knee and ankle. Hip ROM not assessed. Strength: Right Upper Extremity: WFL Left Upper Extremity: WFL Right Lower Extremity: WFL Left Lower Extremity: WFL Sensation: Intact distally Bed Mobility/Transfers: Supine?sit: Independent Sit?supine: Independent Sit?stand: Independent Stand?sit: Independent Gait: Patient ambulates with FW W x 150 feet, with supervision only. She requires minimal cues for FWW management, as she tends lift WW off the floor as she ambulates. She demonstrates improved safety with cues, and is able to carry this over throughout treatment session. Stairs: Patient manages therapeutic stairs 4 inches x 3 with bilateral rails and step to pattern. She requires supervision only. Balance: Static Sitting: Normal Dynamic Sitting: Normal Static Standing: Normal Dynamic Standing: Fair Special Tests: Mobility Limitations Standardized Measure [facility] AM-PAC 6 clicks Basic Mobility Inpatient Short Form: Raw Score: 24 CMS Score: 0% deficit Informed Consent/Education: Patient instructed in purpose of PT consult and plan of care. She was instructed in early home exercise program consisting of antiembolic exercises and heel raises. We discussed appropriate activity progression, and all questions were answered. Assessment: Patient is a 74 year old female referred to physical therapy services with the diagnosis of left STACY. Patient presents with clinical signs and symptoms consistent with post-operative status. Session today consisted of evaluation and instruction in home exercise program, as well as gait and transfer training. Patient demonstrated excellent safety and independence, and does not require any further PT intervention in acute care setting. Patient demonstrates sufficient safety and independence to allow for safe transition back home once medically cleared. She currently demonstrates the following impairment level findings: 1. Decreased activity tolerance 2. Gait impairments Impairments are contributing to the following functional limitations: 1. Patient requiring education regarding stair management and equipment management 2. Decreased activity tolerance Patient is assessed as a Low 13915 complexity based on the following: History: 74-year-old female presenting 1 day status post left STACY. No significant complicating factors Examination: Functional limitations as noted above Presentation: Stable Decision Making: Low complexity Plan of Care/Treatment Plan: No further PT intervention required in acute care setting. DISCHARGE RECOMMENDATIONS: Home, no anticipated equipment needs TREATMENT CODE/TIME: 9:40?10:00 ([id number]) Penny Garcia, PT, DPT [facility]
--- NOTE | 2019-09-11 14:42 | PDOC.CMDIS ---
- If Service Date Differs Date of service: 09/11/19 Time of Service: 14:42 LACE Index Scoring Tool - Questions: Length of Stay (in days): 2 Acuity (Admit via E.D.?): Yes E.D. Visits: 1 - Answers: Total Score: 6 Risk of Readmission: Low Risk Care Management Discharge Reason for Hospitalization: subcapital fracture of left femur Discharge Plan: Maribell will be discharged home with no new services. She will follow up with her suregeon and discharge plan of care. She will transport with via private vehicle. Patient/Family Education Needs: Discharge plan, limitations, Ask Me Three.
== END 2019-09-11 11:30 | disposition home or self-care (01) | DRG 470 ==
LOC: ER 14:53 → MS 15:45
PROVIDERS: Internal Medicine; Admitting Provider Student in an Organized Health Care Education/Training Program; Emergency Provider Physician Assistant; PCP Family Medicine; Visit Provider Student in an Organized Health Care Education/Training Program
PROC: 0SRB04A Replacement of Left Hip Joint with Ceramic on Polyethylene Synthetic Substitute, Uncemented, Open Approach (ICD-10-PCS; CPT 27130; principal; 2019-09-10 14:30)
DX: S72.012A Unspecified intracapsular fracture of left femur, initial encounter for closed fracture (principal); W18.30XA Fall on same level, unspecified, initial encounter; Y93.K1 Activity, walking an animal; Z96.652 Presence of left artificial knee joint
CPT/HCPCS: 27130; 36415; 80053; 93005; 97161; 99222; 99223; 99231; 99253; 99285; NC; 71046; 73501; 73502; 83735; 84484; 85014; 85018; 85025; 93010; J0131; J0690; J1885; J2250; J2370; J2405; J3490

== ENCOUNTER 2019-09-27 14:29 | Outpatient (CLI) | payer MEDICARE, OTHER, SELFPAY ==
--- NOTE | 2019-09-27 14:17 | DI.RAD_ITS ---
EXAM: XR HIP LT COMPLETE AP PELVIS INDICATION: 1ST POST OP LEFT STACY. COMPARISON: XR HIP LT COMPLETE AP PELVIS from 09/09/2019 XR HIP RT IN OR from 09/10/2019 TECHNIQUE: 2D digital imaging was performed. FINDINGS: There are again seen postsurgical changes of a left total hip replacement. The distal stem of the pr osthesis is not visualized on the AP view the pelvis. No findings to suggest loosening or infection are present. The bones are intact. The soft tissues are unremarkable. IMPRESSION: Left THR.
== END 2019-09-27 14:49 ==
PROVIDERS: PCP Family Medicine; Referring Provider Family Medicine; Visit Provider Student in an Organized Health Care Education/Training Program
DX: Z96.642 Presence of left artificial hip joint (principal); S72.012D Unspecified intracapsular fracture of left femur, subsequent encounter for closed fracture with routine healing; X58.XXXD Exposure to other specified factors, subsequent encounter
CPT/HCPCS: 73502

== ENCOUNTER → 2019-10-25 14:15 | Outpatient (BNVA) | payer MEDICARE, OTHER, SELFPAY | PROVIDERS: PCP Family Medicine; Referring Provider Family Medicine; Visit Provider Student in an Organized Health Care Education/Training Program | DX: Z47.1 Aftercare following joint replacement surgery (principal); Z96.642 Presence of left artificial hip joint ==

== ENCOUNTER 2020-03-10 10:16 | Outpatient (CLI) | payer MEDICARE, OTHER, SELFPAY ==
--- NOTE | 2020-03-10 09:45 | DI.RAD_ITS ---
EXAM: XR STANDING ALIGNMENT CLINICAL HISTORY: Right knee pain TECHNIQUE: COMPARISON: CR XR KNEE RT 3V AP,LAT,TABITHA from 03/10/2020 FINDINGS: AP standing alignment views of the lower extremities are interpreted in conjunction with right knee r adiographs. There is a left hip prosthesis in position. 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 Mild DJD of medial tibiofemoral join t and patellofemoral joint noted. There appears to be mild valgus angulation of the right knee. Sli ght valgus angulation of left knee may be present as well. IMPRESSION:
== END 2020-03-10 10:36 ==
PROVIDERS: PCP Family Medicine; Referring Provider Family Medicine; Visit Provider Student in an Organized Health Care Education/Training Program
DX: M25.561 Pain in right knee (principal); Z96.642 Presence of left artificial hip joint; M17.11 Unilateral primary osteoarthritis, right knee; M21.061 Valgus deformity, not elsewhere classified, right knee
CPT/HCPCS: 73562; 99214; 77073

== ENCOUNTER 2020-04-14 11:00 | Outpatient (CLI) | payer MEDICARE, OTHER, SELFPAY | END 2020-04-14 11:20 | PROVIDERS: PCP Family Medicine; Visit Provider Student in an Organized Health Care Education/Training Program | DX: Z01.818 Encounter for other preprocedural examination (principal); M17.11 Unilateral primary osteoarthritis, right knee ==

== ENCOUNTER → 2020-04-20 12:13 | Outpatient (BNVA) | payer MEDICARE, OTHER, SELFPAY | PROVIDERS: PCP Family Medicine; Referring Provider Family Medicine; Visit Provider Student in an Organized Health Care Education/Training Program | DX: M17.11 Unilateral primary osteoarthritis, right knee (principal) | CPT/HCPCS: 99213 ==

== ENCOUNTER 2020-04-21 01:38 | Outpatient (CLI) | payer MEDICARE, OTHER, SELFPAY ==
[2020-04-21 10:06] LABS: HCT 38.9 % (36.0-46.0); HGB 12.5 g/dL (12.0-15.5); Mean Corp. HGB Concentration 32.1 g/dL (32.0-36.0); Mean Corpuscular Hemoglobin 27.5 pg (27.0-33.0); Mean Corpuscular Volume 85.5 fL (80-95); Platelet Count 237 x1000/uL (130-400); RBC 4.55 m/cumm (4.00-5.20); RBC Distribution Width 14.1 % (11.7-14.6); White Blood Cell Count 7.02 k/cumm (4.4-10.8)
[2020-04-21 11:08] LABS: Anion Gap 7.6 mmol/L (3-11); BUN 19 mg/dL (7-18); CO2 29.4 mmol/L (21.0-32.0); CREATININE 1.02 mg/dL (0.55-1.02); Calcium 9.4 mg/dL (8.5-10.1); Chloride 103 mmol/L (98-107); Estimated GFR 52.69 (mL/min/1.73m2); Glucose 87 mg/dL (74-106); Potassium 5.1 mmol/L (3.5-5.1); Sodium 140 mmol/L (136-145)
[2020-04-21 22:38] LABS: COVID-19 RT-PCR UVMMC Result Negative (Negative)
== END 2020-04-21 01:58 ==
PROVIDERS: PCP Family Medicine; Visit Provider Student in an Organized Health Care Education/Training Program
DX: M25.561 Pain in right knee (principal); M17.11 Unilateral primary osteoarthritis, right knee; Z01.818 Encounter for other preprocedural examination; Z03.818 Encounter for observation for suspected exposure to other biological agents ruled out; Z01.812 Encounter for preprocedural laboratory examination
CPT/HCPCS: 36415; 80048; 85027; U0003

== ENCOUNTER 2020-04-25 09:45 | Inpatient (IN) | payer MEDICARE, OTHER, SELFPAY ==
[2020-04-25] VITALS (7 sets, daily range): BP systolic 147–178; BP diastolic 49–80; PULSE 60–81; RESP 12–16; TEMP 36.6–37.1; O2SAT 97–99
[2020-04-25] MEDS: Celecoxib 200 MG CAP 400 MG PO (10:35)
[2020-04-25] MEDS: Acetaminophen 500 MG TAB 1000 MG PO ×2 (10:35→17:21)
[2020-04-25] MEDS: Gabapentin 300 MG CAP PO (10:35)
[2020-04-25] MEDS: Lactated Ringers 1,000 ML 80 ML IV (11:09)
[2020-04-25] MEDS: ceFAZolin 2 GM/50 ML BAG IVPB (13:18)
[2020-04-25] MEDS: Bupivacaine 0.25% Pres-Free 30 ML VIAL (13:58)
[2020-04-25] MEDS: Ketorolac 30 MG/ML VIAL (13:59)
[2020-04-25] MEDS: Normal Saline 20 ML VIAL (14:01)
--- NOTE | 2020-04-25 15:16 | W.PM.DS.N ---
Date of service: 04/25/20 Time of Service: 17:40 DS: Diagnosis Discharge Diagnosis (1) Arthritis of right knee: Status: Acute Discharge Plan Disposition Patient Disposition: HOME Condition: Good Discharge Details Reason For Visit: OA R KNEE Admit Date/Time: 04/25/20 09:45 Admit Provider: Lopez Williamson Attending Provider: Lopez Williamson Primary Care Provider: [facility] Course Hospital Course: Patient was admitted to the medical/surgical floor following the procedure. The surgery was tolerated well without any notable medical, surgical, or anesthetic complications. Mobilization began postoperatively. She was voiding spontaneously. Vitals were stable. Physical therapy worked with the patient and was cleared for discharge home. No acute medical issues. Pain was controlled on oral regimen. Home Meds and New Rx's Prescriptions: New acetaminophen 500 mg tablet 500 mg PO Q6H PRN (Reason: pain) Qty: 60 RF: 2 pantoprazole 40 mg tablet,delayed release (DR/EC) 40 mg PO DAILY 30 Days Qty: 30 RF: 0 oxycodone 5 mg tablet 5 mg PO Q4H PRN (Reason: severe post-operative pain) Qty: 18 RF: 0 celecoxib [Celebrex] 200 mg capsule 200 mg PO BID Qty: 60 RF: 0 aspirin 81 mg tablet,chewable 81 mg PO BID Qty: 60 RF: 0 Continued calcium carbonate-vitamin D3 1 EACH tablet 1 ea PO DAILY RF: 0 cholecalciferol (vitamin D3) [Vitamin D3] 400 UNIT tablet 800 unit PO DAILY RF: 0 Discontinued acetaminophen 500 mg tablet 1,000 mg PO Q8H PRN (Reason: pain) Qty: 90 RF: 3 ibuprofen 600 mg tablet 600 mg PO TID PRNQty: 60 RF: 3 Discharge Instructions Additional Instructions: Total Knee Discharge Instructions Activity: The most important activity is to walk. You should try to take short walks a few times a day. It is important that when resting you work on keeping the knee straight. Avoid putting a pillow behind the knee as this will encourage flexion. Work on range of motion exercises as provided by Physical Therapy. - Start outpatient physical therapy within 2 weeks. - You should wear the MALIKA hose on both legs for 2 weeks. Dressing: Keep the surgical dressing in place for at least one week. After the first week it may be removed and replace with light gauze and tape or nothing. It may get wet after 3 days but avoid soaking the dressing. If it gets wet, just lightly pat dry. Medications: - You should take Tylenol and anti-inflammatory Celebrex as your primary pain control medications - You have been prescribed a stronger pain medication Oxycodone for breakthrough pain, take as needed as prescribed. - You have also been prescribed a stomach acid reduction agent Pantoprozole to help reduce stomach acid and reflux. - You will be taking Aspirin 81mg twice a day for DVT prevention unless instructed otherwise. - If you have constipation you should take Colace or Miralax (both [id number]). It takes most people 3-4 days to have a bowel movement. Follow-up: 2 weeks Referrals: Lopez Williamson MD [ [facility] STAFF PHYSICIAN] - Activity:: Activity as Tolerated Equipment/Supplies:: Walker Diet:: As Tolerated Discharge Orders Discharge Orders: Discharge Order (Routine); Ordered 04/25/20 Ordered By: Lopez Williamson DS: Summary Status at Discharge Functional status at discharge: uses cane/walker Overall status at discharge: patient is progressing back to baseline Mental Status: mental status grossly normal Speech and Movement: speech and movement normal Mood: congruent mood Affect: normal affect Exam Psych Mental Status: mental status grossly normal Speech and Movement: speech and movement normal Mood: congruent mood Affect: normal affect DS: Data Vitals/I&O Vitals and I&O: Vital Signs Temperature 37.1 C 04/25/20 10:25 Pulse 81 04/25/20 10:25 Pulse Rhythm Regular 04/25/20 10:25 Respiratory Rate 16 04/25/20 10:25 Respiratory Effort 04/25/20 10:25 Blood Pressure 178/80 H 04/25/20 10:25 Pulse Oximetry 99 04/25/20 10:25 Oxygen Delivery Method Room Air 04/25/20 10:25 Oxygen Flow Rate 0 04/25/20 10:25 Pain Level 0 04/25/20 10:25 Intake & Output 04/24/20 04/25/20 04/25/20 23:59 11:59 23:59 Intake Total 670 / 670 Output Total 200 / 200 Balance 470 / 470 Weight 64.5 kg Intake: IV 670 / 670 Output: Estimated Blood Loss 200 / 200 REPLACED BY [facility] Medical History Annual physical exam (Acute) No significant past medical history (Acute) Surgical History History of cataract surgery (Chronic) History of knee surgery (Acute) Open lateral procedure History of tonsillectomy (Chronic) History of total left hip replacement (Acute 09/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 Dr. Williamson Family History Mother , 46 Lymphoma Father , 74 Neoplasm PANCREATIC Pancreatic cancer Maternal Grandfather , 80 No problems noted. Paternal Grandfather Stomach cancer Maternal Grandmother Stroke Paternal Grandmother , 70 Heart disease Social History Smoking/Tobacco Use Status: Former Tobacco Use Tobacco: How many years used: 10 Second Hand Exposure: No Alcohol Intake: current Alcohol Intake frequency: holidays/special occasions only Alcohol type: wine Drug use: Never Substance use type: does not use Caregiver/Support person: No Household members: spouse Housing: house Communication Needs: None Pets and animals: Yes Pets and animals: cat(s) and dog(s) Sexually active: No Do you think of yourself as: straight/heterosexual Current gender identity: female What is your relationship status?: How often do you talk on the phone with friends or family?: three or more times per week How often do you get together with friends or relatives?: once per week How often do you attend jainism or pentecostalism services?: decline to answer Do you belong to any clubs or organized social groups?: yes Panel score (0-1 are the most socially isolated patients): 3 What type of physical activity do you participate in: walking Duration: 45-60 minutes/day Frequency: daily Maribell/Temple: None Special maribell needs: No Seatbelt use: always Helmet use: Yes Helmet use: always 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
[2020-04-25] MEDS: ceFAZolin 1 GM/50 ML BAG IVPB (17:22)
--- NOTE | 2020-04-25 17:36 | PT.INIE ---
Date of service: 04/25/20 Time of Service: 14:05 PT Notes Visit Reasons: OA R KNEE Inpatient Physical Therapy Evaluation Date: 04/25/2020 Referring Doctor: Dr. Williamson PT Orders: PT CONSULT: Status post right TKA Precautions: fall, standard Patient Profile/Admitting Diagnosis: Patient admitted postop day 0 status post right TKA. PMHX: History of left STACY Social History/Home Situation: Patient lives independently in a multilevel home with her spouse. She has 3 steps to enter with single rail. Equipment Owned/DME: FW W Subjective: Patient states that she is feeling good. She is looking forward to walking. Objective: General Observation: Resting comfortably in bed with IV in RUE. No additional lines. Mental Status: A and O x3 Pain: 0/10 ROM: Right Upper Extremity: WFL Left Upper Extremity: WFL Right Lower Extremity: -10 degrees extension. She was instructed in active quad setting activities to promote full knee extension during rest periods. She functionally demonstrates knee flexion to approximately 85 degrees. Left Lower Extremity: WFL Strength: Right Upper Extremity: WFL Left Upper Extremity: WFL Right Lower Extremity: Patient is able to perform SLR with minor extension lag. She independently performs L AQ without difficulty. She is able to pump ankles and wiggle toes. Left Lower Extremity: WFL Sensation: Intact distally Bed Mobility/Transfers: Supine?sit: Independent Sit?supine: Independent Sit?stand: Supervision Stand?sit: Supervision Gait: Patient ambulates 100 feet x 2 with FW W, CSA. Stairs: Patient manages therapeutic stairs with 4 inch step, ascending and descending 3 step with bilateral rails and supervision only. Balance: Static Sitting: Normal Dynamic Sitting: Normal Static Standing: Good Dynamic Standing: Fair Special Tests: Mobility Limitations Standardized Measure [facility] AM-PAC 6 clicks Basic Mobility Inpatient Short Form: Raw Score: 24 CMS Score: 0% deficit Informed Consent/Education: Patient instructed in purpose of PT consult and plan of care. Assessment: Patient is a 74 year old female referred to physical therapy services with the diagnosis of right knee OA, postop day 0 right TKA. Patient presents with clinical signs and symptoms consistent with postoperative status, as demonstrated by the following impairment level findings: 1. Decreased range of motion right knee 2. Decreased functional strength right lower extremity 3. Decreased activity tolerance Impairments are contributing to the following functional limitations: 1. Decreased tolerance to community distance ambulation Patient is assessed as a Low 83261 complexity based on the following: History: 74-year-old female presenting postop day 0 right TKA. She demonstrates excellent tolerance to introduction of ambulation and stair management, and demonstrates sufficient safety and independence to allow for safe transition back to independent living. Examination: Functional limitations as noted above Presentation: Stable Decision Making: Low Plan of Care/Treatment Plan: No further PT intervention required in acute care setting. Recommend outpatient PT to maximize range of motion, strength, and functional mobility. DISCHARGE RECOMMENDATIONS: No anticipated equipment needs. TREATMENT CODE/TIME: 5:05-5:30, [id number] Penny Garcia, PT, DPT [facility]
--- NOTE | 2020-04-25 17:36 | W.PM.OP ---
Date of service: 04/25/20 Time of Service: 15:04 Operative Note Operative Note DATE OF PROCEDURE: 04/25/20 PRE-OP DIAGNOSIS: Right Knee Arthritis POST-OP DIAGNOSIS: same PROCEDURE: Right Total Knee Arthroplasty with Intraoperative Navigation SURGEON: Lopez Williamson DYE RANGE OPERATOR CLOTH: Yuli Nolasco DYE RANGE OPERATOR CLOTH: Santosh Sullivan ANESTHESIA: regional and spinal ESTIMATED BLOOD LOSS: 200 PATHOLOGY: none sent TOURNIQUET TIME: 31 COMPLICATIONS: None Patient was transported to: PACU Patient's condition: stable Implants: 1. Depuy Attune Cruciate Retaining Femoral Component, Size 6 2. Depuy Attune Rotating Platform Tibial Component, Size 5 3. Depuy Attune 6x6 CR, RP Poly 4. Depuy Attune Patellar Component, Size 38 Indications: I have seen Maribell in clinic for symptoms of knee arthritis, confirmed with radiographic findings. Maribell has exhausted nonoperative methods and was having significant limitations in daily function and desired better function and less pain. I discussed the technical details of a knee replacement. I explained the risks of the procedure to include, but not limited to, bleeding, infection, pain, stiffness, fracture, damage to nerves and vessels, damage to muscles and tendons, loosening, need for repeat procedure, blood clot and cardiopulmonary demise. Despite these risks, she elected to proceed. Findings: There was significant signs of arthritis throughout the knee. These were focused on the lateral femur and lateral tibia. Procedure Description: Maribell was greeted in the preoperative holding area where the correct side was identified and marked. The consent was reviewed with the patient and signed. The history and physical was updated. All questions were answered. Preoperative mediacations were administered: Acetaminophen 1000mg, Celebrex 400mg, Gabapentin 300mg. An adductor canal block was then administered by the anesthesia team in the PACU. Maribell was taken back to the operating room. A spinal anesthestic was then administered. The patient was placed into the supine position on the operating room table. A nonsterile tourniquet was placed high onto the leg but only used for cementing. Posts were placed for positioning during the procedure. All bony prominences were well padded. Prophylactic antibiotics in the form of Cefazolin were administered. 1g of Tranxemic Acid was given intravenously within 30 minutes of incision. The right leg was then prepped with Chloraprep and draped in a standard fashion with impervious stockinette and extremity drape with Iodine impregnated skin protection. A timeout to confirm correct identity, side and site, procedure, allergies, anesthesia, and medical concerns was performed. With the knee in some flexion, a midline incision was made overlying the knee. Full thickness skin flaps were raised once the extensor mechanism was encountered. These were raised medially and laterally. Any bleeding was controlled with electrocautery. Once the extensor mechanism was fully exposed, a medial parapatellar arthrotomy was performed in a flexed position. All bleeding from the arthrotomy and the geniculate arteries was coagulated. A medial subperiosteal peel was performed with electrocautery to the midcoronal plane. The fat pad was removed while keeping the patellar tendon protected. The anterior distal femur synovium was removed for later visualization. The ACL and PCL were resected and the anterior horn of the lateral meniscus was transected. The knee was then flexed with the patella everted. Large osteophytes from the tibia were removed. Large osteophytes from the femur were removed. There was some hypoplasia of the lateral femoral condyle and any remnant cartilage of the medial femoral condyle was removed for appropriate thickness. A single starting pin was then placed 1cm anterior to the PCL insertion and the notch in the direction of the femoral head. The OrthoAlign device was applied over the pin. It was oriented to be in line with the epicondylar axis and the trochlear groove. It was then pinned into place. The navigation computer was then turned on and calibrated. The distal femur cut was set at 0 degrees varus/valgus and 2.5 degrees flexion. The distal femur cutting guide then was positioned for a 9mm cut. The distal femur was cut with an oscillating saw while protecting the soft tissues. The tibia was then addressed. The OrthoAlign device was placed over the tibial tubercle and medial tibia and secured into position. Once again, OrthoAlign was calibrated and then set for a 0 degree varus/valgus cut and 6 degrees of posterior slope. With this locked into position, the cut thickness stylus was used to assess cut thickness. The lateral side, most involved side, was set for a 4mm cut, which corresponded to 7-8mm off of the medial. This was then held in position and pinned into place with 2 additional pins and a cross pin for stability. The medial and lateral collateral ligaments were protected and the cut was performed. With this completed, it was assessed and noted to be of appropriate dimensions. The guide and OrthoAlign was removed. A spacer block was inserted and the knee was brought into extension. The 6mm spacer block provided full extension, without hyperextension and with stability of both the medial and lateral collateral ligaments was assessed. The pins from the femur and the tibia were then removed. The distal femur was then sized. The anterior stylus was placed onto the lateral ridge of the anterior femur. This indicated a size 6 femur. The external rotation of the guide was adjusted to 3 degrees to match the epicondylar axis, perpendicular to Del?s line. The 4-in-1 cutting guide was the placed. The posterior medial femur cut was evaluated and appeared of good thickness. The spacer block was inserted underneath the cutting guide and stability was confirmed in 90 degrees of flexion. An catherine wing was used to confirm appropriate position of the anterior cut to avoid notching. This cutting guide was ensured to be flush on the cut surface and then pinned into place with headed pins. While protecting the soft tissues, quad tendon, and collateral ligaments, the anterior and posterior cuts were performed with a saw. The central two pins were removed and the posterior and anterior chamfers were cut next. The notch-cutting guide was placed. This was pinned to lateralize the femoral component as much as possible while keeping it flush on the cut surface. This was then pinned into position. A reciprocating saw was used to make the notch cut. A rasp smoothed the cut surfaces. A trial posterior stabilized femoral component was then inserted, impacted down to the cut surfaces, and the lug holes were drilled. A provisional trial tibial component was placed and the knee was brought through range of motion. There was noted to be excellent extension and flexion. There was no significant instability. The patella was tracking without thumbs. The tibial cut surface was fully exposed. The medial and lateral menisci were removed. The tibia was then sized as a 5. The tibia had been previously marked during trialing to correspond to the center of the tibial component to help with rotation. The trial was aligned to this [place], approximately rotated to the medial 1/3rd of the tibial tubercle. The trial was pinned into place. The tibia was prepared with a reamer and a keel punch. The knee was then brought into extension and the patella was measured as 27mm. Using the patellar clamp and cut guide, this was resected to a flat surface with at least 13mm of thickness remaining. The size 38 patella fit the best. This was oriented and then clamped into position. The lugs were drilled. The trial components were removed. The final components, except for the polyethylene were opened on the back table. The periosteal and capsular tissues, especially posteriorly, around the knee were then systematically injected with a periarticular cocktail consisting of 50cc 0.25% Marcaine, 30mg Ketorolac, 20cc of Exparal and 50cc of injectable saline. The tourniquet was then inflated to 275mmHg. The knee was thoroughly irrigated with a pulse lavage and dried. On the back table, with the implants opened, the cement was mixed. 2 batches of antibiotic laden cement were prepared with vacuum assistance. After the cement was ready a small amount was placed on to the back side of the tibial component at the keel. A small amount was placed onto the posterior flange of the femur. Cement was manual pressurized and impregnated into the cut surface of the tibia. The tibial component was then inserted into the cut surface and impacted into position. Excess cement was removed and the component was reimpacted. Again, excess cement was removed and our attention was then turned to the femur. The femoral cut surface was once again dried and cement was manually impacted into the cut surface. The femoral component was lined with the lug holes and impacted. Excess cement was removed. It was ensured to be down against the cut surface. The trial polyethylene was then inserted and the leg was brought out into full extension for the duration of the cement curing process, approximately 15min. Cement was lastly manually impacted into the cut surface of the patella and the patellar button was clamped into position and held. During this process attention was turned to the gutters of the knee and for all interfaces for any excess cement. After the cement had finally cured, approximately 15min, the clamp was removed from the patella and the knee was taken through range of motion. A size 6mm polyethylene component provided the best range of motion and stability with less than 2mm gapping with medial and lateral stress and full extension without significant hyperextension. The patella was tracking with a no-thumbs technique. The trial poly was removed and once again the knee was checked for any loose, excess, or errant cement. The poly component was then inserted into position after cleaning and drying the tibial tray. The capsule was then reapproximated with a No. 1 Vicryl at multiple locations. The capsule was finally closed with a No. 2 Stratafix, barbed suture. The tourniquet was then released and the arthrotomy appeared watertight without significant bleeding. The second dosing of 1g TXA was started. Deep tissues were then reapproximated with 0 Vicryl and 2-0 Vicryl. The skin was closed with a running 3-0 Monocryl in a subcuticular fashion. This was reinforced with skin glue. A Mepilex silver dressing was applied along with a uhqi-sa-ktena KULWANT wrap. A CryoCuff was applied. Maribell was transferred to the hospital bed without difficulty an suffering no apparent complication. She has a good prognosis. Physical therapy will start today and without restrictions, weight-bearing as tolerated. Aspirin 81mg BID will be used for DVT prophylaxis.
== END 2020-04-25 18:24 | disposition home or self-care (01) | DRG 470 ==
LOC: PDS 13:27 → MS 16:03
PROVIDERS: Admitting Provider Student in an Organized Health Care Education/Training Program; PCP Family Medicine; Visit Provider Student in an Organized Health Care Education/Training Program
PROC: 0SRC0J9 Replacement of Right Knee Joint with Synthetic Substitute, Cemented, Open Approach (ICD-10-PCS; CPT 27447; principal; 2020-04-25 13:00)
DX: M17.11 Unilateral primary osteoarthritis, right knee (principal); M25.561 Pain in right knee; Z96.651 Presence of right artificial knee joint; G89.18 Other acute postprocedural pain; Z96.642 Presence of left artificial hip joint
CPT/HCPCS: 27447; 20985; 76942; 97161; NC; J0690; J1885; J2405

== ENCOUNTER 2020-05-08 15:41 | Outpatient (CLI) | payer MEDICARE, OTHER, SELFPAY ==
--- NOTE | 2020-05-08 15:00 | DI.RAD_ITS ---
EXAM: XR STANDING ALIGNMENT CLINICAL HISTORY: 1st post op. TECHNIQUE: 2D digital imaging was performed. COMPARISON: CR XR STANDING ALIGNMENT from 03/10/2020 FINDINGS: The patient has a stable right total knee replacement. Mild degenerative changes are seen in the lef t knee. The patient has a left total hip arthroplasty. The right hip is unremarkable. The bones ar e intact. The right lower extremity measures 92.1 cm. The left lower extremity measures 90.7 cm. IMPRESSION: DATA REPOSITORY: RADIATION DOSE DELIVERED:
== END 2020-05-08 16:01 ==
PROVIDERS: PCP Family Medicine; Referring Provider Family Medicine; Visit Provider Student in an Organized Health Care Education/Training Program
DX: Z96.651 Presence of right artificial knee joint (principal); M17.12 Unilateral primary osteoarthritis, left knee; Z96.642 Presence of left artificial hip joint; Z47.1 Aftercare following joint replacement surgery
CPT/HCPCS: 73560; 77073

== ENCOUNTER → 2020-06-05 13:44 | Outpatient (BNVA) | payer MEDICARE, OTHER, SELFPAY | PROVIDERS: PCP Family Medicine; Referring Provider Family Medicine; Visit Provider Student in an Organized Health Care Education/Training Program | DX: Z47.1 Aftercare following joint replacement surgery (principal); Z96.651 Presence of right artificial knee joint ==

== ENCOUNTER → 2020-07-17 13:01 | Outpatient (BNVA) | payer MEDICARE, OTHER, SELFPAY | PROVIDERS: PCP Family Medicine; Referring Provider Family Medicine; Visit Provider Student in an Organized Health Care Education/Training Program | DX: Z47.1 Aftercare following joint replacement surgery (principal); Z96.651 Presence of right artificial knee joint ==

== ENCOUNTER 2021-01-11 01:50 | Outpatient (CLI) | payer MEDICARE, OTHER, SELFPAY ==
--- NOTE | 2021-01-11 13:15 | DI.MAMMO_ITS ---
EXAM: MG MAMMO SCREENING CLINICAL HISTORY: screening,Z12.39. TECHNIQUE: Bilateral full field digital CC and MLO mammographic images were obtained with 3D tomosyn thesis and utilizing computer aided detection (CAD). COMPARISON: Prior mammograms dating back to 2013, the most recent being April 2018. FINDINGS: There is continued stable appearance of microcalcification slightly lateral of center left breast There are no new spiculated masses nor new malignant appearing microcalcification groups. There is n o significant architectural distortion nor skin thickening-retraction. IMPRESSION: Stable benign findings. No radiographic evidence of malignancy. BI-RADS Category 2 - Benign Findings Breast Density - Category B - Scattered areas of fibroglandular density Breast density Category C or D implies that the patient has dense breast tissue. Dense breast tissue can make it harder to find cancer on a mammogram. Dense breast tissue is also associated with an incr eased risk of breast cancer. This information about the result of the mammogram report was provided to the patient to raise their awareness. Use this report when you speak with the patient about their risks for breast cancer, which includes their family history. At that time, you may recommend additional screening tests (Ultrasoun d or MRI) as these tests may add significant information. A negative radiographic report should not delay biopsy if a dominant or clinically suspicious mass is present. Up to ten percent of cancers are not identified on mammography. A negative report may reinforce clinical impression. Adenosis and dense breasts may obscure an underlying neoplasm. False positive reports average 6 to 10%. Patient will receive a letter notifying them of these results.
== END 2021-01-11 02:10 ==
PROVIDERS: PCP Family Medicine; Visit Provider Family Medicine
DX: Z12.31 Encounter for screening mammogram for malignant neoplasm of breast (principal); R92.0 Mammographic microcalcification found on diagnostic imaging of breast
CPT/HCPCS: 77063; 77067

== ENCOUNTER 2021-04-02 11:34 | Outpatient (CLI) | payer MEDICARE, OTHER, SELFPAY ==
--- NOTE | 2021-04-02 10:15 | DI.RAD_ITS ---
Exam(s) XR KNEE RT 2V AP,LAT EXAM: XR KNEE RT 2V AP,LAT CLINICAL HISTORY: ANNUAL F/U R TKA. TECHNIQUE: 2D digital imaging was performed. COMPARISON: CR XR KNEE RT 1V from 05/08/2020 CR XR STANDING ALIGNMENT from 05/08/2020 CR XR HIP LT AP LAT ONLY from 04/02/2021 FINDINGS: There are again seen postsurgical changes of a right total knee replacement. No lucencies are seen i n or about the orthopedic hardware. The bones are intact and normally mineralized. There may be a s mall joint effusion. IMPRESSION: Right TKR. DATA REPOSITORY: RADIATION DOSE DELIVERED:
--- NOTE | 2021-04-02 10:15 | DI.RAD_ITS ---
Exam(s) XR HIP LT AP LAT ONLY EXAM: XR HIP LT AP LAT ONLY CLINICAL HISTORY: ANNUAL F/U L STACY. TECHNIQUE: 2D digital imaging was performed. COMPARISON: CR XR HIP LT COMPLETE AP PELVIS from 09/27/2019 FINDINGS: There are stable postsurgical changes of a left total hip replacement. No lucencies are seen in or a bout the orthopedic hardware. The bones are intact. The soft tissues are unremarkable. IMPRESSION: Stable left STACY. DATA REPOSITORY: RADIATION DOSE DELIVERED:
== END 2021-04-02 11:35 | disposition home or self-care (01) ==
LOC: DIORS 11:34
PROVIDERS: PCP Family Medicine; Referring Provider Family Medicine; Visit Provider Nurse Practitioner
DX: Z47.1 Aftercare following joint replacement surgery (principal); Z96.651 Presence of right artificial knee joint; Z96.642 Presence of left artificial hip joint; M70.61 Trochanteric bursitis, right hip
CPT/HCPCS: 99213; 73502; 73560

== ENCOUNTER 2022-05-27 03:56 | Outpatient (CLI) | payer MEDICARE, OTHER, SELFPAY ==
[2022-05-27 12:54] LABS: ALT 18 U/L (14-59); AST 16 U/L (15-37); Albumin 3.9 g/dL (3.4-5.0); Alkaline Phosphatase 60 U/L (46-116); Anion Gap 8.4 mmol/L (3-11); BUN 22 mg/dL (7-18); Bilirubin, Total 0.6 mg/dL (0.2-1.0); CO2 27.6 mmol/L (21.0-32.0); CREATININE 1.2 mg/dL (0.55-1.02); Calcium 9.3 mg/dL (8.5-10.1); Chloride 103 mmol/L (98-107); Estimated GFR 43.34 (mL/min/1.73m2); Glucose 90 mg/dL (74-106); Potassium 4.1 mmol/L (3.5-5.1); Sodium 139 mmol/L (136-145); Total Protein 7.2 g/dL (6.4-8.2)
== END 2022-05-27 03:57 | disposition home or self-care (01) ==
LOC: LOS 03:57
DX: R42 Dizziness and giddiness (principal); R03.0 Elevated blood-pressure reading, without diagnosis of hypertension
CPT/HCPCS: 36415; 80053

== ENCOUNTER 2022-09-07 16:49 | Outpatient (REF) | payer MEDICARE, OTHER, SELFPAY | END 2022-09-07 16:50 | disposition home or self-care (01) | LOC: NCHCN 16:49 | PROVIDERS: PCP Nurse Practitioner Family; Visit Provider Nurse Practitioner Family | DX: N39.0 Urinary tract infection, site not specified (principal) | CPT/HCPCS: 87077; 87086; 87186 ==

== ENCOUNTER 2022-09-25 03:44 | Outpatient (CLI) | payer MEDICARE, OTHER, SELFPAY ==
[2022-09-25 12:27] LABS: Anion Gap 5.7 mmol/L (3-11); BUN 20 mg/dL (7-18); CO2 28.3 mmol/L (21.0-32.0); Calcium 9.1 mg/dL (8.5-10.1); Chloride 104 mmol/L (98-107); Estimated GFR 57.31 (mL/min/1.73m2); Glucose 76 mg/dL (74-106); Sodium 138 mmol/L (136-145)
== END 2022-09-25 03:45 | disposition home or self-care (01) ==
LOC: LOS 03:44
PROVIDERS: PCP Nurse Practitioner Family
DX: N28.89 Other specified disorders of kidney and ureter (principal)
CPT/HCPCS: 36415; 80048

== ENCOUNTER 2022-09-30 21:51 | Outpatient (REF) | payer MEDICARE, OTHER, SELFPAY ==
[2022-09-30 20:36] LABS: Bilirubin Negative (Negative); Blood Small (Negative); Clarity Cloudy (Clear); Glucose Negative (Negative); Ketones Negative (Negative); Leukocyte Esterase Large (Negative); Nitrite Negative (Negative); Specific Gravity 1.015 (1.005-1.025); Urobilinogen 0.2 EU/dL (Up TO 0.2); pH 7.5 (5-8)
[2022-09-30 20:45] LABS: Bacteria Few HPF (Negative); C & S Indicated? Yes; Crystals Negative HPF (Negative); Epithelial Cells Rare HPF (Negative); Mucus Negative (Negative); WBC >50 HPF (0-5)
== END 2022-09-30 21:52 | disposition home or self-care (01) ==
LOC: LBN 21:51
PROVIDERS: PCP Nurse Practitioner Family; Visit Provider Nurse Practitioner Family
DX: Z87.440 Personal history of urinary (tract) infections (principal)
CPT/HCPCS: 87077; 81003; 81015; 87086; 87186

== ENCOUNTER 2023-03-17 10:32 | Inpatient (IN) | payer MEDICARE, OTHER, SELFPAY ==
--- NOTE | 2023-03-17 10:30 | DI.RAD_ITS ---
Exam(s) XR HIP RT COMPLETE AP PELVIS EXAM: XR HIP RT COMPLETE AP PELVIS CLINICAL HISTORY: fall, right sided groin pain. TECHNIQUE: 2D digital imaging was performed of the right hip. Three images were obtained. AP pelvis and lateral right hip views were obtained. COMPARISON: CR XR HIP LT AP LAT ONLY from 04/02/2021 FINDINGS: BONES: There is an acute impacted subcapital fracture of the right femur. No bony destructive lesion is seen. JOINTS: No dislocation present. Note is again made of a left total hip replacement. It is incomplete ly imaged on this current examination. The sacroiliac joints and symphysis pubis are intact. SOFT TISSUE: Normal. IMPRESSION: Acute impacted subcapital fracture of the right femur. DATA REPOSITORY: RADIATION DOSE DELIVERED:
--- NOTE | 2023-03-17 10:30 | W.ED.GENAD ---
Discharge Plan Disposition Patient Disposition: Admit to [facility] Condition: Stable Condition: Improving Discharge Details Chief Complaint: Fall/Non TraumaCriteria Clinical Impression: Closed subcapital fracture of neck of right femur Admit Date/Time: 03/17/23 11:52 Admit Provider: Lopez Williamson Attending Provider: Lopez Williamson Primary Care Provider: Lai Dial ED Provider: Delores Garcia Discharge Instructions Activity:: Activity as Tolerated Equipment/Supplies:: Walker Diet:: As Tolerated Discharge Orders Discharge Orders: Discharge Order (Routine); Ordered 03/18/23 Ordered By: Lopez Williamson Discharge Data Discharge Date/Time-TO BE ENTERED AT DEPARTURE: 03/17/23 13:06 Medical Decision Making Patient is a pleasant 77-year-old female with past medical history significant for left sided hip fracture, presenting today with chief complaint, via EMS, of right-sided groin pain. She reports that she tripped over an untied shoelace this morning when ambulating at home and landed on the right side. States that she immediately had noted some right-sided groin pain and has not been able to ambulate or bear weight since that time. Is preferring the leg to be in a semiflexed position. Denies other injury at the time of the incident. Denies any headache or visual change, nausea, vomiting. Denies any pain in her neck or back. No episodes of incontinence of bowel or bladder. Denies any sensory deficits. Has not received any analgesics, states that she does have significant difficulty with narcotics. On exam, patient appears nontoxic. She is hypertensive but states that typically her blood pressure is well controlled. She is quite uncomfortable which may be contributing to this. She is 2+ distal pulses. Sensation is intact. No saddle paresthesias. She has no pain with palpation over the foot, ankle, calf, knee or thigh. Pain elicited with palpation within the groin and over the right hip. No evidence of ecchymosis, swelling. 2+ distal pulses. No shortening or malrotation. No pelvic instability. Abdomen is benign. Will obtain x-ray to evaluate for potential fracture. She is agreeable to taking acetaminophen to help with discomfort. X-ray reviewed by myself, concerning for femoral neck fracture. We will move forward with further imaging including femur imaging, chest x-ray and obtain labs in preparation for likely surgical intervention. Discussed these findings with the patient. She last ate at 7 AM. Also called anesthesia to discuss a block for the patient. Consulted with Dr. Williamson who will admit the patient. Plan for OR today for total. Discussed with patient who is in agreement. Will start IV hydration as she is NPO. She states the APAP helped. Declines morales. Of note, her BP has been elevated. She states that this is checked routinely, it has not been elevated in the past. Likely associated with situation. She does not have SONG, CP or other evidence of end organ damage. Will hold off on emergent management of this. Patient trarnsferred to floor with plan of definitive surgical managmenet today. HPI General Date/Time Provider Initiated Documentation: 03/17/23 11:06. Limitations to Documentation: no limitations. Information obtained by: patient, EMS and RN notes reviewed. History of Present Illness 77 year old F presents to the emergency department with the chief complaint of right hip pain, described as severe and similar to prior episodes, Quality is described as aching, and is localized to the right and lower extremity. Patient reports no radiation. Patient started experiencing this hour(s) and it has been constant. Immobilization improves symptom(s), Movement worsens symptoms . Patient notes no other symptoms.. Patient did receive the following treatments prior to arrival, none Related Data Home Medications Medication Instructions Recorded Confirmed calcium carbonate 600 mg-vitamin 1 ea PO DAILY 03/03/14 03/17/23 D3 5 mcg (200 unit) tablet cholecalciferol (vitamin D3) 10 800 unit PO DAILY 03/03/14 03/17/23 mcg (400 unit) tablet (Vitamin D3) acetaminophen 500 mg tablet 1,000 mg PO Q8H PRN pain #90 tabs 03/18/23 aspirin 81 mg tablet,delayed 81 mg PO BID #60 tabs 03/18/23 release celecoxib 200 mg capsule 200 mg PO BID PRN pain #60 caps 03/18/23 pantoprazole 40 mg tablet,delayed 40 mg PO DAILY #30 tabs 03/18/23 release tramadol 50 mg tablet 50 mg PO Q4H PRN #6 tabs 03/18/23 Previous Rx's Medication Instructions Recorded acetaminophen 500 mg tablet 1,000 mg PO Q8H PRN pain #90 tabs 03/18/23 aspirin 81 mg tablet,delayed 81 mg PO BID #60 tabs 03/18/23 release celecoxib 200 mg capsule 200 mg PO BID PRN pain #60 caps 03/18/23 pantoprazole 40 mg tablet,delayed 40 mg PO DAILY #30 tabs 03/18/23 release tramadol 50 mg tablet 50 mg PO Q4H PRN #6 tabs 03/18/23 Allergies Allergy/AdvReac Type Severity Reaction Status Date / Time Tetanus Vaccines and Toxoid AdvReac Intermediate FEVER Verified 03/17/23 10:28 aspirin AdvReac Unknown BLEEDING Verified 03/17/23 10:28 General Stated Complaint: Fall/Non TraumaCriteria RAJESH: 3 Review of Systems Constitutional Constitutional: Reports as per HPI, Denies chills, Denies fever(s), Denies headache(s) and Denies weakness ENT Ears, Nose, Mouth, and Throat: Denies headache(s) Cardiovascular Cardiovascular: Reports as per HPI Respiratory Respiratory: Reports as per HPI and Denies cough Musculoskeletal Musculoskeletal: Reports as per HPI and Denies tingling Integumentary/Breasts Skin/Breast: Reports as per HPI, Denies rash and Denies wounds Neurologic Neurologic: Reports as per HPI, Denies headache(s), Denies tingling, Denies paresthesias and Denies weakness [facility] All Active Problems (Updated 03/18/23 @ 08:25 by GASPER Zaragoza) Closed subcapital fracture of neck of right femur (Acute) History of UTI (Acute) Decreased renal function (Acute) Sensorineural hearing loss (SNHL) of both ears (Acute) Sensation of fullness in left ear (Acute) Episodic lightheadedness (Acute) Otitis externa (Acute) Greater trochanteric bursitis of right hip (Acute) Medical History Annual physical exam No significant past medical history Surgical History History of cataract surgery History of knee surgery Open lateral procedure History of tonsillectomy 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 Dr. 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 Maternal Grandmother Stroke Alzheimer's dementia Paternal Grandmother , 70 Cancer stomach Social History Smoking/Tobacco Use Status: Former Tobacco Use Tobacco: How many years used: 10 Second Hand Exposure: No Smoking risk assessment performed?: Yes Drug use: Never Substance use type: does not use Caregiver/Support person: No Household members: spouse Housing: house Communication Needs: None Pets and animals: Yes Pets and animals: cat(s) and dog(s) Sexually active: No Do you think of yourself as: straight/heterosexual Current gender identity: female What is your relationship status?: How often do you talk on the phone with friends or family?: three or more times per week How often do you get together with friends or relatives?: once per week How often do you attend mu-ism or baptism services?: decline to answer Do you belong to any clubs or organized social groups?: yes Panel score (0-1 are the most socially isolated patients): 3 What type of physical activity do you participate in: walking Duration: 45-60 minutes/day Frequency: daily Maribell/Hoahaoism: None Special maribell needs: No Seatbelt use: always Helmet use: Yes Helmet use: always 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 Do you feel safe at home: Yes Do you feel safe in your relationship?: Yes Exam Const General: cooperative, healthy appearing, comfortable, no acute distress, well developed and well groomed Nutritional Appearance: average body habitus and well nourished Orientation: alert and awake Neck Neck: normal visual inspection Resp Effort & Inspection: normal respiratory effort, able to speak in complete sentences and no respiratory distress Auscultation: clear to auscultation bilaterally Cardio Rate: regular rate Rhythm: regular rhythm Heart Sounds: S1 normal and S2 normal Back/Spine/Pelvis Cervical Spine: normal cervical lordosis, cervical ROM normal, No pain with cervical ROM, No cervical spinal tenderness and No step off deformity Skin General skin exam: no rashes or lesions noted Lesions: no lesions Rashes: no rashes Trauma: no lacerations or abrasions Neuro General: patient alert and patient awake Cognition: normal cognition Speech: speech normal Gait: gait abnormal (unable to weight bear d/t right hip injury) Motor: muscle tone normal throughout Sensory Exam: no sensory deficits noted Extrem Upper/lower leg/hip images: 1. Area of maximal pain. 2+ distal pulses. Sensation intact. No pain with palpation of foot, ankle, calf, knee or thigh. Able to plantar/dorsiflex. ROM of knee not assessed d/t hip pain but no effusion or pain with palpation. No palpable swelling or deformity. Unwilling to range hip d/t pain. No abdomianl pain with palpation. No pelvic instability. Intact saddle sensation Psych Appearance: grossly normal and well kempt Mental Status: mental status grossly normal Speech and Movement: speech and movement normal Course Vital Signs Vital signs: Temperature Source Oral 03/17/23 10:17 Respiratory Effort Normal, Non-Labored 03/17/23 10:19 Oxygen Delivery Method Room Air 03/17/23 10:17 Oxygen Flow Rate 0 03/17/23 10:17 Pain Level 8 03/17/23 10:17
[2023-03-17] MEDS: Acetaminophen 500 MG TAB 1000 MG PO (10:34)
--- NOTE | 2023-03-17 11:00 | DI.RAD_ITS ---
Exam(s) XR CHEST 2V PA LATERAL EXAM: XR CHEST 2V PA LATERAL CLINICAL HISTORY: hip fracture TECHNIQUE: 2D digital imaging was performed of the chest. Four images were obtained. PA and latera l views were obtained. COMPARISON: CR XR CHEST 2V PA LATERAL from 09/09/2019 FINDINGS: MEDIASTINUM: Normal. HEART: Normal. PULMONARY VASCULATURE: Normal. LUNGS: Clear. PLEURAL SPACE: No pleural effusion or pneumothorax. BONE:Within normal limits for the patient's age. OTHER FINDINGS:Normal. IMPRESSION: No acute pulmonary findings. DATA REPOSITORY: RADIATION DOSE DELIVERED:
--- NOTE | 2023-03-17 11:00 | DI.RAD_ITS ---
Exam(s) XR FEMUR RT EXAM: XR FEMUR RT CLINICAL HISTORY: fracture. TECHNIQUE: 2D digital imaging was performed of the right femur. Six images were obtained. AP and la teral views were obtained. COMPARISON: No exams were available for comparison FINDINGS: BONES: There is an acute impacted subcapital fracture of the right femoral neck. No bony destructive lesion is seen. The patient has a right total knee replacement which appears unremarkable. The hip joint is well maintained. SOFT TISSUE: Atherosclerosis is present. IMPRESSION: Acute impacted subcapital fracture of the right femoral neck. DATA REPOSITORY: RADIATION DOSE DELIVERED:
[2023-03-17 12:18] LABS: HCT 40.4 % (36.0-46.0); HGB 13.2 g/dL (11.2-15.7); MCHC 32.7 % (32.0-36.0); MCV 86 fL (80-95); MPV 9.5 fL (8.0-11.0); Platelet Count 227 10^3/uL (130-400); RBC 4.72 10^6/uL (3.93-5.22); RDW 14.1 % (11.7-14.6); RDW-SD 44.3 fL
[2023-03-17 12:30] LABS: ALT 22 U/L (14-59); AST 27 U/L (15-37); Alkaline Phosphatase 63 U/L (46-116); Anion Gap 5.9 mmol/L (3-11); BUN 17 mg/dL (7-18); Bilirubin, Total 0.6 mg/dL (0.2-1.0); CO2 29.1 mmol/L (21.0-32.0); Calcium 9.3 mg/dL (8.5-10.1); Chloride 101 mmol/L (98-107); Estimated GFR 57.31 (mL/min/1.73m2); Glucose 111 mg/dL (74-106); Sodium 136 mmol/L (136-145); Total Protein 7.8 g/dL (6.4-8.2)
[2023-03-17 12:36] LABS: COVID-19 PCR Negative (Negative); Influenza A PCR Negative (Negative); Influenza B PCR Negative (Negative); RSV PCR Negative (Negative)
--- NOTE | 2023-03-17 12:39 | W.ORTHOCONSU ---
Date of service: 03/17/23 Time of Service: 12:39 History of Present Illness History of Present Illness Chief Complaint: RIght hip pain Narrative: Maribell is a 77-year-old female who is active and healthy but tripped today on her shoelace getting caught in a dog crate. She landed directly onto her right side suffering immediate pain. She attempted ambulation but was limited by pain. She had a previous fall with displaced from a neck fracture of the left side treated with a hip replacement which did very well. She also status post right knee replacement. She had no other changes to her health. She takes only vitamins. She denies chest pain or shortness of breath. She denied any head trauma. She denied any loss of consciousness or presyncope preceding the fall. She denies any numbness or tingling. Consults Consult date: 03/17/23 Requesting physician: Delores Garcia Consult Reason Right hip fracture Assessment and Plan Assessment and plan (1) Closed subcapital fracture of neck of right femur: Status: Acute Assessment and plan: Maribell is a 77-year-old active female who had a fall directly onto the right hip and suffered an impacted and displaced femoral neck fracture. Given the displacement her active lifestyle recommend proceeding with hip replacement as we previously on the left side. She has no major medical issues. She did very well from the left side. I discussed this with her in detail and she had no questions. I had a long discussion in regards to surgical replacement of the hip. I went over in detail the possible complications of hip replacement. These include but are not limited to bleeding, infection, pain, stiffness, weakness, damage to nerves (especially the lateral femoral cutaneous nerve), damage to vessels, damage to muscle and tendon, fracture, leg length inequality, wound healing complications, instability, dislocation, and blood clot. Questions were answered. After reviewing all this and answering questions, she agreed to proceed with the right hip replacement. She last ate around 7 AM this morning. The OR is available and given a busy schedule tomorrow in the operating room we will try to proceed this evening. The OR staff will be notified. The remainder of her labs will be performed although there is no indication of any medical indication to proceeding. Review of Systems All systems reviewed & are unremarkable except as noted in HPI and below PFSH All Active Problems (Updated 03/17/23 @ 12:50 by Lopez Williamson MD) Closed subcapital fracture of neck of right femur (Acute) History of UTI (Acute) Decreased renal function (Acute) Sensorineural hearing loss (SNHL) of both ears (Acute) Sensation of fullness in left ear (Acute) Episodic lightheadedness (Acute) Otitis externa (Acute) Greater trochanteric bursitis of right hip (Acute) Medical History Annual physical exam No significant past medical history Surgical History History of cataract surgery History of knee surgery Open lateral procedure History of tonsillectomy 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 Dr. 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 Maternal Grandmother Stroke Alzheimer's dementia Paternal Grandmother , 70 Cancer stomach Social History Smoking/Tobacco Use Status: Former Tobacco Use Tobacco: How many years used: 10 Second Hand Exposure: No Smoking risk assessment performed?: Yes Drug use: Never Substance use type: does not use Caregiver/Support person: No Household members: spouse Housing: house Communication Needs: None Pets and animals: Yes Pets and animals: cat(s) and dog(s) Sexually active: No Do you think of yourself as: straight/heterosexual Current gender identity: female What is your relationship status?: How often do you talk on the phone with friends or family?: three or more times per week How often do you get together with friends or relatives?: once per week How often do you attend sikhism or congregation services?: decline to answer Do you belong to any clubs or organized social groups?: yes Panel score (0-1 are the most socially isolated patients): 3 What type of physical activity do you participate in: walking Duration: 45-60 minutes/day Frequency: daily Maribell/Restoration: None Special maribell needs: No Seatbelt use: always Helmet use: Yes Helmet use: always 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 There is some pain to palpation proximally around the hip and with any attempted internal rotation. Sensation intact light touch over the lateral from cutaneous nerve as well as from L3-S1. Results Labs 03/17/23 12:00 03/17/23 12:00 Labs: Laboratory Results - last 24 hr 03/17/23 03/17/23 12:00 12:00 WBC 15.00 H RBC 4.72 Hgb 13.2 Hct 40.4 MCV 86 MCH 28.0 MCHC 32.7 RDW 14.1 Plt Count 227 MPV 9.5 Sodium 136 Potassium 4.0 Chloride 101 Carbon Dioxide 29.1 Anion Gap 5.9 BUN 17 Creatinine 1.0 Est GFR (CKD-EPI 2020) 57.31 Glucose 111 H Calcium 9.3 Total Bilirubin 0.6 AST 27 ALT 22 Alkaline Phosphatase 63 Total Protein 7.8 Albumin 4.0 Imaging Imaging Studies: X-ray of the right hip and femur demonstrates a impacted subcapital femoral neck fracture. There is notable valgus angulation and displacement as well. Following the medial cortex there appears to be displacement of at least 5 mm. There also may be some posterior angulation of the femoral head seen on the lateral although less than expected. No shaft fractures appreciated on the femur film. Knee replacement is seen in the distal aspect of the femur without any sign of complication.
[2023-03-17 12:42] LABS: Source Nasopharynx
--- NOTE | 2023-03-17 13:02 | ANES.PREOP_ITS ---
General Info Date of Service Date Performed: 03/17/23 Height: 5 ft 7 in Weight: 63 kg Body Mass Index (BMI): 21.7 Surgical Procedure: Operation Date: 03/17/23 16:05 Proposed Procedure Side Surgeon p Hip Total Hip Anterior Right Lopez Williamson MD Meds Allergies and Home Medications Allergies Allergy/AdvReac Type Severity Reaction Status Date / Time Tetanus Vaccines and Toxoid AdvReac Intermediate FEVER Verified 03/17/23 10:28 aspirin AdvReac Unknown BLEEDING Verified 03/17/23 10:28 Home Medication Medication Instructions Recorded calcium carbonate 600 mg-vitamin 1 ea PO DAILY 03/03/14 D3 5 mcg (200 unit) tablet cholecalciferol (vitamin D3) 10 800 unit PO DAILY 03/03/14 mcg (400 unit) tablet (Vitamin D3) acetaminophen 500 mg tablet 500 mg PO Q6H PRN pain #60 tabs 04/25/20 Current Visit Medications: Current Medications Generic Name Dose Route Start Last Admin Trade Name Freq PRN Reason Stop Dose Admin Hydromorphone HCl 0.2 mg 03/17/23 12:02 Hydromorphone 2 Mg/Ml Syr IVP Q2H PRN PRN Ringer's Solution 1,000 mls @ 75 mls/hr 03/17/23 13:00 IV INFUSION DEBRA Tranexamic Acid 1,000 mg/ 60 mls @ 360 mls/hr 03/17/23 13:00 Sodium Chloride IVPB PREOP DEBRA Cefazolin Sodium/Dextrose 2 gm in 50 mls @ 100 mls/hr 03/17/23 13:00 Ancef Duplex IVPB PREOP DEBRA Acetaminophen 1,000 mg in 100 mls @ 400 mls/hr 03/17/23 12:59 Ofirmev IVPB Q6H PRN PRN IV Miscellaneous Supplies 1 each 03/17/23 11:15 Iv Access IV DIRECTED DEBRA Ondansetron HCl 4 mg 03/17/23 12:02 Ondansetron 4 Mg/2 Ml Vial IVP Q6H PRN PRN Nausea Sodium Chloride 0 ml 03/17/23 11:07 Normal Saline Flush 10 Ml Syr IVP PRN PRN PFSH Active Problems Active Problems: Problem Status Onset Code History of UTI Z87.440 Decreased renal function N28.9 Sensorineural hearing loss (SNHL) of both ears H90.3 Sensation of fullness in left ear H93.8X2 Episodic lightheadedness R42 Otitis externa H60.90 Greater trochanteric bursitis of right hip M70.61 Medical History Medical History Annual physical exam No significant past medical history Surgical History Surgical History History of cataract surgery History of knee surgery Open lateral procedure History of tonsillectomy 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 Dr. Williamson History of total right knee replacement (04/25/20) Tobacco Smoking/Tobacco Use Status: Former Tobacco Use Passive smoking exposure: Yes Second hand exposure: No Substance Use Substance use: Never Substance use type: does not use Vital Signs and Lab Results Lab Results 03/17/23 12:00 03/17/23 12:00 Blood Type / Crossmatch: No Data to Display Complete Blood Count: White Blood Count 15.00 10^3/uL (4.4-10.8) H 03/17/23 12:00 Red Blood Count 4.72 10^6/uL (3.93-5.22) 03/17/23 12:00 Hemoglobin 13.2 g/dL (11.2-15.7) 03/17/23 12:00 Hematocrit 40.4 % (36.0-46.0) 03/17/23 12:00 Platelet Count 227 10^3/uL (130-400) 03/17/23 12:00 Complete Metabolic Panel: Sodium 136 mmol/L (136-145) 03/17/23 12:00 Potassium 4.0 mmol/L (3.5-5.1) 03/17/23 12:00 Chloride 101 mmol/L (98-107) 03/17/23 12:00 Carbon Dioxide 29.1 mmol/L (21.0-32.0) 03/17/23 12:00 BUN 17 mg/dL (7-18) 03/17/23 12:00 Creatinine 1.0 mg/dL (0.55-1.02) 03/17/23 12:00 Est GFR (CKD-EPI 2020) 57.31 (mL/min/1.73m2) 03/17/23 12:00 Calcium 9.3 mg/dL (8.5-10.1) 03/17/23 12:00 Albumin 4.0 g/dL (3.4-5.0) 03/17/23 12:00 Glucose 111 mg/dL (74-106) H 03/17/23 12:00 Liver Function Panel: Alanine Aminotransferase (ALT/SGPT) 22 U/L (14-59) 03/17/23 12: 00 Aspartate Amino Transf (AST/SGOT) 27 U/L (15-37) 03/17/23 12:00 Coagulation Panel: No Data to Display Cardiac Panel: No Data to Display Arterial Blood Gas: No Data to Display Venous Blood Gas: No Data to Display Pancreas Panel: No Data to Display Thyroid Panel: No Data to Display Infectious Disease: Coronavirus (COVID-19)(PCR) Negative (Negative) 03/17/23 11:55 Coronavirus 2019 Source Nasopharynx 03/17/23 11:55 Influenza Virus Type A (PCR) Negative (Negative) 03/17/23 11:5 5 Influenza Virus Type B (PCR) Negative (Negative) 03/17/23 11:5 5 Respiratory Syncytial Virus (PCR) Negative (Negative) 03/17/23 11:55 Blood Cultures: No Data to Display Toxicology Panel: No Data to Display Anesthesia Assessment and Plan Anesthesia History Personal History: No History of Anesthesia Complications Family History: No Family History of Anesthesia Complications Exercise Tolerance Exercise Tolerance: Metabolic Equivalents>4 Cardiac & Pulmonary Exam Cardiac Exam: Normal S1/S2 Heart Sounds Pulmonary Exam: Clear Bilateral Breath Sounds Implantable Cardiac Device Does patient have a Pacemaker or an ICD?: No Airway Exam Known Difficult Airway: No Mallampati Class: 2 Mouth Opening: Narrow (< 3cm) Thyromental Distance: Less than 3 cm Neck Range of Motion: Full ROM Neck Circumference: Normal Teeth Condition: Normal Dentition ASA Classification ASA Score: ASA 2 Emergency Case?: No NPO Status NPO Status: NPO Clears >2 hours, Solids >8 hours Anesthesia Plan Resuscitation Status: Full Code Anesthesia Technique: Spinal Anesthesia Airway Planned: Natural Airway Monitors Used: Standard Monitors Preoperative Comments:: 77 yo female for hip replacement due to hip fracture. Sig PMHx: denies major health history. Previous Anes: - STACY for hip fracture, spinal (ketamine/midaz for placement), prop sedation. - TKA, spinal with chloro, prop sedation. Discussed plan of GA vs spinal, would like spinal.
[2023-03-17 13:10] VITALS: BP 192/66; PULSE 75; RESP 17; TEMP 37.1; O2SAT 97
--- NOTE | 2023-03-17 13:30 | DI.RAD_ITS ---
Exam(s) XR HIP RT IN OR EXAM: XR HIP RT IN OR CLINICAL HISTORY: Closed subcapital fracture of neck of right femur TECHNIQUE: 2D and realtime digital imaging was performed. CONTRAST MATERIAL: Refer to procedure report. COMPARISON: CR XR HIP RT COMPLETE AP PELVIS from 03/17/2023 FINDINGS: Fluoroscopy was provided for Dr. Williamson during the performance of a right total hip replacement. Please refer to the procedure report for complete details. Ka,r=6.35 mGy IMPRESSION: RADIATION DOSE DELIVERED:
[2023-03-17 14:31] VITALS: BMI 21.7
[2023-03-17] MEDS: Lactated Ringers 1,000 ML 75 ML IV (16:13)
[2023-03-17] MEDS: ceFAZolin 2 GM/50 ML BAG IVPB (16:30)
--- NOTE | 2023-03-17 18:05 | W.PM.OP ---
Date of service: 03/17/23 Time of Service: 18:04 Operative Note Operative Note DATE OF PROCEDURE: 03/17/23 PRE-OP DIAGNOSIS: Right Displaced Femoral Neck Fracture POST-OP DIAGNOSIS: same PROCEDURE: Right Anterior Total Hip Arthroplasty with Intraoperative Navigation SURGEON: Lopez Williamson INSURANCE PROFESSIONAL: Nathanael Rivera ANESTHESIA TYPE: Spinal Refer to Anesthesia Record ESTIMATED BLOOD LOSS: 100 PATHOLOGY: none sent TOURNIQUET TIME: 0 COMPLICATIONS: None Patient was transported to: PACU Patient's condition: stable Implants: 1. Depuy Hendley Acetabular Component, 52mm 2. Depuy Acetabular Liner, [id number] 3. Depuy Corail Coxa Vara Collared Femoral Stem, Size 12 4. Depuy Altrx Ceramic Femoral Head, Size 36+1.5mm Indications: I have seen Maribell in the ED for a displaced femoral neck fracture. Given the displaced nature of the hip fracture and her previous excellent results with a hip fracture on the left side, I offered hip replacement. I discussed the technical details of a hip replacement. I explained the risks of the procedure to include, but not limited to, bleeding, infection, pain, stiffness, fracture, damage to nerves and vessels, damage to muscles and tendons, loosening, instability, leg length inequality, need for repeat procedure, blood clot and cardiopulmonary demise. Despite these risks, Maribell elected to proceed. Findings: There is a comminuted fracture about the subcapital region of the femoral neck. Procedure Description: Maribell was greeted in the preoperative holding area where the correct side was identified and marked. The consent was previously reviewed with the patient and signed. All questions were answered. She was taken back to the operating room. A spinal anesthestic was then administered. The feet were wrapped with cast padding and Coban and then placed into the boot liners and then into the boots. Care was taken to protect the skin and make sure the heels were fully down and the boots were stable. The patient was then positioned onto the HANA table. Both legs were held in a neutral position. SCDs were applied. The patient was then slid down onto a peroneal post. Prophylactic antibiotics in the form of Cefazolin were administered. 1g of Tranxemic Acid was given intravenously within 30 minutes of incision. The right leg was then prepped with Chloraprep and draped in a standard fashion. A second prep with Chloraprep was performed prior to placement of a shower-curtain type drape with Iodine impregnated skin protection. A timeout to confirm correct identity, side and site, procedure, allergies, anesthesia, and medical concerns was performed. An obliquely oriented incision was made starting lateral to the ASIS and running distal over the Tensor Fascia Kimberlee (TFL) muscle belly toward the fibular head, approximately 10cm. The skin and soft tissue was dissected sharply, through Dayo?s fascia, and to the fascia of the TFL. With the fascia and superior border of the IT band identified, the fascia was incised with a new knife just above any perforators from the IT band. The TFL muscle belly was bluntly dissected away from the fascia and moved laterally. The fat between TFL and rectus was identified to ensure the dissection was not within the TFL. Blunt dissection created space between abductors and the capsule and retractor was placed over the lateral femoral neck. The fibers of the rectus femoris tendon were identified and these were freed from the anterior capsule. A second cobra retractor was placed around the medial femoral neck. The TFL was further retracted laterally to show the deep fascia. Careful dissection through this layer identified three main crossing vessels of the lateral femoral circumflex. These were cauterized in multiple locations and then cut without any noticeable bleeding. The TFL was further released bluntly from the deep fascia to expose anterior hip capsule and fat The Tom orthopaedic retractor was then placed beneath the TFL and against sartorius and medial soft tissues to protect and retract the soft tissues. A T-capsulotomy was then performed starting at the superior lateral acetabulum and moving distally to the intertrochanteric ridge. These capsular flaps were tagged with a No. 1 Ethibond and elevated from within. Fracture hematoma was evacuated. The capsular flaps were released to the shoulder of the lateral neck and to the lesser trochanter to give excellent visualization of the proximal femur. There was a notable fracture about the subcapital region of the femoral neck with comminution. A neck osteotomy was performed using an oscillating saw based on preoperative templates, slightly proximal to the fracture. This cut started in the shoulder and of the lateral neck and exited medially. The saw was at all times directed medially to avoid injury to the greater trochanter. Gross traction was applied to the leg and the osteotomy opened. I used a rongeur to remove the napkin ring osteotomy. The femoral head was removed with a corkscrew, making sure to protect the TFL on its exit. Traction was released after head removal. This was measured on the back table to determine the starting reamer size. Portions of the rectus obscuring visualization were minimally elevated off the superior acetabulum. An anterior retractor was placed over the anterior wall between capsule and labrum and attached to the Gripper retraction system. The femur was rotated to 90 degrees and medial capsule was fully released until the lesser trochanter was palpable and visible; the femur was returned to 30 degrees. A posterior retractor was placed similarly between capsule and labrum. This provided excellent visualization. The contents of the cotyloid fossa were removed with electrocautery and the labrum was removed with a knife. Acetabular reaming began with a 46mm reamer. This first reaming was directed anterior to posterior and medial to get down to the true floor. This was inspected and reamed until the true floor was reached. The anterior retractor was then released and entry and exit was provided by traction on the capsular flaps. I then reamed sequentially up to a 52mm reamer where good fit was obtained. The larger reamers were oriented based on anatomical reference of the anterior and lateral serrano to ensure proper abduction and anteversion. Positioning and size was confirmed with the fluoroscopy. A 52mm Depuy Hendley acetabular component was selected. The acetabulum was reamed around the periphery with the selected acetabular size to prevent a rim fit. The deep tissues were irrigated. The acetabular component was then impacted in a position of about 40-45 degrees of abduction and 15-20 degrees of anteversion, using the patient?s anatomy as the ultimate landmark. Fluoroscopy was used to confirm this. There was excellent non licensed nuclear equipment operator of the acetabular component and the inserting handle was removed. The acetabular liner, Depuy [id number] polyethylene liner, was inserted and lined up with the tines of the acetabular component. There was no soft tissue interposition. The liner was then impacted into position and confirmed to be well-seated. A portion of the anna-articular cocktail was then injected around the acetabulum into the capsule and periosteum. This cocktail consisted of 123mg of Ropivacaine, 0.25mg of Epinephrine, 0.04mg of Clonidine, and 15mg of Ketorolac, diluted to 50cc. The leg was rotated to 120 degrees. Any remaining medial capsule was released until the lesser trochanter was easily palpable. A retractor was placed medially. The lateral capsule was further released into the shoulder to allow access to the greater trochanter. A Vanegas retractor was placed over the greater trochanter which allowed the trochanter to flip in front of the capsule for excellent exposure. The leg was brought down into maximal extension and 20 degrees of adduction while ensuring there was no impingement on the acetabulum. Any remnant capsule within the trochanter was released. Piriformis and obturator externis were identified and protected. There was excellent access to the proximal femur. The lateral neck remnant was removed with a rongeur. A blunt canal probe was used to identify the canal and trajectory for later broaching. A box osteotome initiated the broach course. A small curved rasp and a curved curette were used to work laterally. Broaching then began with a size 8 Corail broach. This was inserted manually around the trochanter and into the canal before mallet blows. The broach was seated to a few millimeters below the cut level based on the neck cut and the preoperative template. Sequential broaching was continued with the Deskidease pneumatic broaching device until a tight fit was obtained with good rotational control of the femur. A trial coxa vara neck was inserted along with a +1.5 trial head. The leg was brought out of extension and adduction and then reduced with traction and internal rotation. The leg was stable anteriorly in a position of 30 degrees of extension and 90 degrees of external rotation. Fluoroscopy was used to ensure there was no fracture and the stem was seated well. Leg lengths were checked with an AP pelvis and pelvic reference points. [employer] navigation system was used to confirm appropriate positioning and leg length and offset. There was some difficulty with ascertaining the true femoral head. Therefore I also utilized a alignment tamara which showed that the right side was slight along the left which seems similar to her preoperative and preinjury x-rays. Once content with the desired offset and leg lengths, the leg was brought back into extension, external rotation and adduction. The periosteum and surrounding tissue was injected with remaining portion of the anna-articular cocktail. The proximal femur was irrigated as well as the deep tissues. The [employer] Corail coxa vara collared stem, size 12, was then manually inserted into the proximal femur making sure to control rotation. It was then malleted into position with light blows, giving breaks to allow bone expansion and decrease risk of fracture. The selected Depuy Altrx Ceramic Head, size 36+1.5mm, was then placed onto the clean and dry trunnion and secured with impaction onto the tapered fit. The leg was brought back out of extension and adduction and reduced with traction and internal rotation. Stability was confirmed with no shuck at 90 degrees of external rotation and 30 degrees of extension. No impingement through range of motion arc. Final x-ray images were obtained with fluoroscopy to confirm adequate positioning and no intraoperative fracture. The deep tissues were thoroughly irrigated with Surgiphor, betadine solution. This was allowed to sit in the wound for 3 minutes before being thoroughly irrigated out with normal saline. The capsule was then reapproximated with the previously placed Ethibond sutures. The TFL fascia was finally closed with a No. 2 Stratafix, barbed suture. Deep tissues were then reapproximated with 0 Vicryl and a running 2-0 Vicryl. The skin was closed with a running 4-0 Monocryl in a subcuticular fashion. This was reinforced with skin glue. A Mepilex silver dressing was applied. At the end of the case, all counts were correct. She was transferred to the hospital bed without difficulty and suffering no apparent complication. Maribell has a good prognosis. Physical therapy will start today and without restrictions, weight-bearing as tolerated. Aspirin 81mg BID will be used for DVT prophylaxis.
[2023-03-17 18:15] VITALS: BP 170/77; PULSE 64; RESP 15; TEMP 36.5; O2SAT 98
--- NOTE | 2023-03-17 18:31 | W.ANESPOSTOP ---
Postoperative Evaluation Date, Time and Location Date Performed: 03/17/23 Time Performed: 18:31 Patient Location: PACU Vital Signs Most Recent Imported Vital Signs: Most Recent Vital Signs Temp Pulse Resp BP Pulse Ox 36.5 C 64 15 170/77 H 98 03/17/23 18:15 03/17/23 18:15 03/17/23 18:15 03/17/23 18:15 03/17/23 18:15 Pain Score Most Recent Pain Score: Most Recent Pain Score Pain Level [right hip] 0 03/17/23 13:10 Pain Level 0 03/17/23 18:15 Assessment Mental Status: Awake (Alert & Oriented to Patient Baseline) Airway and Respiratory Function: Patent airway with normal (patient baseline) respiratory exam Cardiovascular Function: Hemodynamically Stable Hydration Status: Adequately Hydrated Nausea & Vomiting: No Nausea or Vomiting Pain: Pain is tolerable per patient Peripheral Nerve Block: Regional nerve block not resolved at time of post operative discharge
[2023-03-17 18:47] VITALS: BP 164/62; PULSE 69; RESP 17; TEMP 36.8; O2SAT 93
[2023-03-17] MEDS: Acetaminophen 325 MG TAB 650 MG PO (19:49)
--- NOTE | 2023-03-17 20:22 | W.ANESNERVE ---
Nerve Block Single Injection Procedure Date and Time Date Performed: 03/17/23 Procedure Start: 12:00 Location Where Procedure Performed Procedure Location: Emergency Department Reason Performed: Acute Pain Management (hip fracture with sig pain. ) Pain Diagnosis: Hip Pain Requesting Provider: Delores Garcia Timeout Performed Timeout Performed: Yes Monitoring Used Blood Pressure and SpO2 Sterility Sterility: Hand Hygiene, Surgical Cap, Surgical Mask, Sterile Gloves and Chlorhexidine Sedation Given During Procedure Sedation Given (Indicate Dose Given): No Sedation given Patient Mental Status Patient Mental Status: Awake Nerve Block 1st Nerve Block: Laterality: Right Block Type: TIM Ultrasound Image Saved?: Yes Needle / Catheter Used: 100mm SonoPlex II Local Anesthetic Bolus (Indicate Dose Given): Lidocaine used for local infiltration of skin and Bupivacaine 0.375% Dose:: 15 mL Additives (Indicate Dose Given): Epinephrine to make 1:200,000 (5mcg/ml) Dose:: 75 mcg and Precedex Dose:: 30 mcg Ultrasound: Sterile probe cover and gel used Nerve Stimulator: Not Used Paresthesia: None Procedure Tolerated: No Complications Procedure Outcome: Successful Performed By: Troy Garcia
[2023-03-17 20:44] VITALS: BP 147/73; PULSE 70; RESP 18; TEMP 37.5; O2SAT 96
[2023-03-17] MEDS: ceFAZolin 1 GM/50 ML BAG IVPB (21:57)
[2023-03-18 01:07] VITALS: BP 139/68; PULSE 70; RESP 16; TEMP 36.9; O2SAT 95
[2023-03-18] MEDS: ceFAZolin 1 GM/50 ML BAG IVPB (06:11)
[2023-03-18 07:21] VITALS: BP 154/70; PULSE 73; RESP 16; TEMP 37.1; O2SAT 97
--- NOTE | 2023-03-18 07:22 | DSE_ITS ---
Date of service: 03/18/23 Time of Service: 07:22 DS: Diagnosis Discharge Diagnosis (1) Closed subcapital fracture of neck of right femur: Status: Acute Discharge Plan Disposition Patient Disposition: Home Condition: Improving Discharge Details Reason For Visit: R femoral neck fracture Admit Date/Time: 03/17/23 11:52 Admit Provider: Lopez Williamson Attending Provider: Lopez Williamson Primary Care Provider: Lai Dial Hospital Course Hospital Course: Patient was admitted to the medical/surgical floor from the emergency department for surgical management of a right femoral neck fracture. Hip replacement for femoral neck fracture was performed in the afternoon possibly #1 and she was returned to the medical surgical floor following the procedure. The surgery was tolerated well without any notable medical, surgical, or anesthetic complications. Mobilization began postoperatively. She was voiding spontaneously. Vitals were stable. Physical therapy worked with the patient and was cleared for discharge home. No acute medical issues. Pain was controlled on oral regimen. Home Meds and New Rx's Prescriptions: New celecoxib 200 mg capsule 200 mg PO BID PRN (Reason: pain) Qty: 60 1RF aspirin 81 mg tablet,delayed release (DR/EC) 81 mg PO BID Qty: 60 0RF tramadol 50 mg tablet 50 mg PO Q4H PRNQty: 6 0RF acetaminophen 500 mg tablet 1,000 mg PO Q8H PRN (Reason: pain) Qty: 90 3RF pantoprazole 40 mg tablet,delayed release (DR/EC) 40 mg PO DAILY Qty: 30 0RF Continued calcium carbonate-vitamin D3 1 EACH tablet 1 ea PO DAILY cholecalciferol (vitamin D3) [Vitamin D3] 400 UNIT tablet 800 unit PO DAILY Discontinued acetaminophen 500 mg tablet 500 mg PO Q6H PRN (Reason: pain) Qty: 60 2RF Discharge Instructions Additional Instructions: Total Hip Discharge Instructions Activity: The most important activity is to walk. You should try to take short walks a few times a day. You have no restrictions on movement or positioning, but do not try to force what you do. You will find some stiffness and weakness with hip flexion (lifting your knee). Do not try to strengthen this too early, continue to practice walking and stairs and this will come. - Outpatient physical therapy can be helpful to help return you to a normal gait and improve your flexibility and strength. This can start around 2 weeks. For some patients, it?s not necessary. Usually this is determined at the time of discharge or at the first post-operative visit. - You should wear the MALIKA hose on both legs for 2 weeks. Dressing: Keep the surgical dressing in place for at least one week. After the first week it may be removed and replace with light gauze and tape or nothing. It may get wet after 3 days but avoid soaking the dressing. If it gets wet, just lightly pat dry. It is important to always keep some gauze between skin folds, especially when you are sitting. Spend some time with the wound exposed when you are lying flat as the incision does wrinkle onto itself. Medications: - You should take Tylenol and an anti-inflammatory Celebrex as your primary pain control medications. If the Celebrex is too expensive or not covered, please call the office for another alternative (Advil/Ibuprofen or Naproxen/Aleve). - You have been prescribed a stronger pain medication Tramadol for breakthrough pain, take as needed as prescribed. - You have also been prescribed a stomach acid reduction agent Pantoprozole to help reduce stomach acid and reflux. - You will be taking Aspirin 81mg twice a day for DVT prevention unless instructed otherwise. - If you have constipation you should take Colace or Miralax (both [id number]). It takes most people 3-4 days to have a bowel movement. Follow-up: 2 weeks If you have any acute concerns or questions, please do not hesitate to contact the office at [phone]. You may contact Dr. Williamson with any questions after hours through the hospital at [phone] or on his cell phone at [phone]. Referrals: Lopez Williamson MD [ [facility] STAFF PHYSICIAN] - Activity:: Activity as Tolerated Equipment/Supplies:: Walker Diet:: As Tolerated Discharge Orders Discharge Orders: Discharge Order (Routine); Ordered 03/18/23 Ordered By: Lopez Williamson DS: Summary Time Spent with Patient providing and/or coordinating discharge services: Less than 30 minutes Status at Discharge Functional status at discharge: uses cane/walker Overall status at discharge: patient is progressing back to baseline Mental Status: mental status grossly normal Speech and Movement: speech and movement normal Mood: congruent mood Affect: normal affect Exam Narrative Exam Narrative: Sitting up in the hospital bed. No acute distress. Alert and orient x3. Evaluation of the right lower extremity shows a soft and compressible right thigh. There is no drainage on the dressing. There is no ecchymosis. She tolerates internal and external rotation without pain. She endorses full sensation over the femoral, sciatic nerve distributions including the lateral femoral cutaneous nerve. He is able to actively dorsiflex and plantarflex the right foot as well as extend and flex the great toe. Psych Mental Status: mental status grossly normal Speech and Movement: speech and movement normal Mood: congruent mood Affect: normal affect DS: Data Vitals/I&O Vitals and I&O: Vital Signs Temperature 36.9 C 03/18/23 01:07 Temperature Source Tympanic 03/18/23 01:07 Pulse 70 03/18/23 01:07 Pulse Rhythm Irregular 03/18/23 07:07 Respiratory Rate 16 03/18/23 01:07 Respiratory Effort Normal, Non-Labored 03/18/23 07:07 Respiratory Depth Normal 03/18/23 07:07 Respiratory Pattern Normal 03/18/23 07:07 Blood Pressure 139/68 03/18/23 01:07 Pulse Oximetry 95 03/18/23 01:07 Oxygen Delivery Method Room Air 03/18/23 01:07 Oxygen Flow Rate 0 03/18/23 01:07 Pain Level 0 03/17/23 20:44 Intake & Output 03/17/23 03/17/23 03/18/23 11:59 23:59 11:59 Intake Total 620 / 620 Output Total 1350 / 1350 500 / 500 Balance -730 / -730 -500 / -500 Weight 63 kg 63.6 kg Intake: IV 620 / 620 Oral 0 / 0 Output: Urine 1250 / 1250 500 / 500 Estimated Blood Loss 100 / 100 Other: Urine Color Yellow Yellow Urine Appearance Clear Clear Urine Odor None None Emesis Description None Voiding Methods Bedpan Data Completed and Pending Labs on day of discharge: Labs from last 24 hours 03/17/23 03/17/23 03/17/23 12:00 12:00 11:55 WBC 15.00 H RBC 4.72 Hgb 13.2 Hct 40.4 MCV 86 MCH 28.0 MCHC 32.7 RDW 14.1 Plt Count 227 MPV 9.5 Sodium 136 Potassium 4.0 Chloride 101 Carbon Dioxide 29.1 Anion Gap 5.9 BUN 17 Creatinine 1.0 Est GFR (CKD-EPI 2020) 57.31 Glucose 111 H Calcium 9.3 Total Bilirubin 0.6 AST 27 ALT 22 Alkaline Phosphatase 63 Total Protein 7.8 Albumin 4.0 COVID-19 Source Nasopharynx SARS-CoV-2 (PCR) Negative Influenza Type A (PCR) Negative Influenza Type B (PCR) Negative RSV (PCR) Negative PFSH All Active Problems Closed subcapital fracture of neck of right femur (Acute) History of UTI (Acute) Decreased renal function (Acute) Sensorineural hearing loss (SNHL) of both ears (Acute) Sensation of fullness in left ear (Acute) Episodic lightheadedness (Acute) Otitis externa (Acute) Greater trochanteric bursitis of right hip (Acute) Medical History Annual physical exam No significant past medical history Surgical History History of cataract surgery History of knee surgery Open lateral procedure History of tonsillectomy 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 Dr. 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 Maternal Grandmother Stroke Alzheimer's dementia Paternal Grandmother , 70 Cancer stomach Social History Smoking/Tobacco Use Status: Former Tobacco Use Tobacco: How many years used: 10 Second Hand Exposure: No Smoking risk assessment performed?: Yes Drug use: Never Substance use type: does not use Caregiver/Support person: No Household members: spouse Housing: house Communication Needs: None Pets and animals: Yes Pets and animals: cat(s) and dog(s) Sexually active: No Do you think of yourself as: straight/heterosexual Current gender identity: female What is your relationship status?: How often do you talk on the phone with friends or family?: three or more times per week How often do you get together with friends or relatives?: once per week How often do you attend islam or scientologist services?: decline to answer Do you belong to any clubs or organized social groups?: yes Panel score (0-1 are the most socially isolated patients): 3 What type of physical activity do you participate in: walking Duration: 45-60 minutes/day Frequency: daily Maribell/Judaism: None Special maribell needs: No Seatbelt use: always Helmet use: Yes Helmet use: always Drive intox or ride w/intox cart driver: No Do you feel safe at home: Yes Do you feel safe in your relationship?: Yes Time Spent with Patient Time Spent with Patient: <45 minutes Time was spent: preparing to see the patient(eg.review tests), obtaining and/or reviewing separately otained hiistory, ordering medications,tests, procedures and counseling the patient
[2023-03-18] MEDS: Acetaminophen 325 MG TAB 650 MG PO (08:56)
--- NOTE | 2023-03-18 09:31 | PDOC.CMIN ---
Date of service: 03/18/23 Time of Service: 09:31 Care Management Initial Assmt Initial Assessment REASON FOR HOSPITALIZATION:: fractured femur PREVIOUS FUNCTIONAL STATUS/SOCIAL/FAMILY SUPPORTS:: Maribell lives with her in a single family 2 story house in [place]. They do not have any children but they do have 2 dogs and a cat. Maribell is independent at baseline and receives no services in the community. ADVANCE DIRECTIVES:: on file [facility] Garay Has patient been provided with info about the portal/API?: Yes Did the patient sign up for the portal?: Yes CODE STATUS:: Full Code INSURANCE COVERAGE / FINANCIAL ISSUES:: Medicare [place] [employer] Insurance PRIMARY CARE PHYSICIAN:: Lai Batista POTENTIAL DISCHARGE NEEDS:: follow up with orthopedics, PCP and plan of care PATIENT/FAMILY EDUCATION NEEDS:: Review of discharge instructions, activity, limitations, follow up plan, discuss Ask Me Three TRANSPORTATION:: via private vehicle with spouse PLAN:: Maribell will be discharged home with no new services. She will follow up with her community providers and plan of care and transport with family. [facility] All Active Problems (Updated 03/18/23 @ 08:25 by GASPER Zaragoza) Closed subcapital fracture of neck of right femur (Acute) History of UTI (Acute) Decreased renal function (Acute) Sensorineural hearing loss (SNHL) of both ears (Acute) Sensation of fullness in left ear (Acute) Episodic lightheadedness (Acute) Otitis externa (Acute) Greater trochanteric bursitis of right hip (Acute) Medical History Annual physical exam No significant past medical history Surgical History History of cataract surgery History of knee surgery Open lateral procedure History of tonsillectomy 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 Dr. 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 Maternal Grandmother Stroke Alzheimer's dementia Paternal Grandmother , 70 Cancer stomach Social History Smoking/Tobacco Use Status: Former Tobacco Use Tobacco: How many years used: 10 Second Hand Exposure: No Smoking risk assessment performed?: Yes Drug use: Never Substance use type: does not use Caregiver/Support person: No Household members: spouse Housing: house Communication Needs: None Pets and animals: Yes Pets and animals: cat(s) and dog(s) Sexually active: No Do you think of yourself as: straight/heterosexual Current gender identity: female What is your relationship status?: How often do you talk on the phone with friends or family?: three or more times per week How often do you get together with friends or relatives?: once per week How often do you attend jewish or nondenominational services?: decline to answer Do you belong to any clubs or organized social groups?: yes Panel score (0-1 are the most socially isolated patients): 3 What type of physical activity do you participate in: walking Duration: 45-60 minutes/day Frequency: daily Maribell/Lutheran: None Special maribell needs: No Seatbelt use: always Helmet use: Yes Helmet use: always Drive intox or ride w/intox parcel post truck driver: No Do you feel safe at home: Yes Do you feel safe in your relationship?: Yes
--- NOTE | 2023-03-18 09:49 | IN_ITS ---
PT Notes Visit Reasons: R femoral neck fracture Physical Therapy Inpatient Initial Evaluation Date: 03/18/2023 Referring Doctor: Lopez Williamson MD PT Orders: PT CONSULT: S/P Ortho surgery. S/P R STACY for hip fracture Precautions: Fall. Standard. WBAT on right LE with AD. Patient Profile/Admitting Diagnosis: Maribell is a 77-year-old female with right displaced femoral neck fracture and status post right anterior total hip arthroplasty on postoperative days 1. PMHX: All Active Problems?(Updated 03/17/23 @ 12:50 by Lopez Williamson MD) Closed subcapital fracture of neck of right femur (Acute) History of UTI (Acute) Decreased renal function (Acute) Sensorineural hearing loss (SNHL) of both ears (Acute) Sensation of fullness in left ear (Acute) Episodic lightheadedness (Acute) Otitis externa (Acute) Greater trochanteric bursitis of right hip (Acute) Medical History? Annual physical exam No significant past medical history Surgical History? 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 Dr. Williamson History of total right knee replacement (04/25/20) Social History/Home Situation: Lives with in a private home with 3 steps to enter with rails on both sides. Independent with all aspects of ADLs prior to surgery without an assistive device. Equipment Owned/DME: [facility] Subjective: Denies pain. Some stiffness in the right hip that did not limit today's mobility performance. Objective: General Observation: Seated on bedside chair. Quote Roller Ag over surgical incision. Mental Status: Alert and oriented as to person, place, time, and purpose. Able to pay attention, focus, and respond appropriately. Pain: 0/10 in her right hip and thigh Vital Signs: WNL monitor by nursing staff ROM: Right Lower Extremity: Hip flexion WFL. Hip abduction WFL. Knee flexion WFL. Ankle dorsiflexion WFL. Ankle plantarflexion WFL. Left Lower Extremity: Hip flexion WFL. Hip abduction WFL. Knee flexion WFL. Ankle dorsiflexion WFL. Ankle plantarflexion WFL. Strength: Right Lower Extremity: Hip flexors 4/5. Hip abductors 4/5. Knee flexors 5/5. Knee extensors 4/5. Ankle dorsiflexors 5/5. Ankle plantarflexors 5/5. Left Lower Extremity: Hip flexors 5/5. Hip abductors 5/5. Knee flexors 5/5. Knee extensors 5/5. Ankle dorsiflexors 5/5. Ankle plantarflexors 5/5. Bed Mobility/Transfers: Rolling independent Supine to sit independent Sit to supine independent Sit to stand independent Stand to sit independent Bed to reclining chair independent Reclining chair to bed independent Gait: Instructed patient with level surface ambulation of 300 feet independently with front wheeled walker. Step through gait pattern. Reported minimal stiffness in the right hip and posterior thigh that did not limit ambulation. Stairs: Ascended and descended 6 x 4 inch steps and 4 x 6 inch steps while holding onto bilateral rails with step to gait pattern going up and step over step gait pattern going down without report of increased pain. Balance: Static Sitting: Normal Dynamic Sitting: Normal Static Standing: Fair Dynamic Standin: Fair Special Tests: Mobility Limitations Standardized Measure [facility]-PAC 6 clicks Basic Mobility Inpatient Short Form: Raw Score: 24 CMS Score: 0% deficit Informed Consent/Education: Patient was instructed in purpose of PT consult and plan of care. Agreeable to proceed with established PT POC to achieve personal goals. THERA EX: Guided patient with safe performance of HEP to gain joint flexibility and facilitate functional mobility progression: Access Code: [email or web address] URL: [email or web address] Date: 03/18/2023 Prepared by: Shannon Cavazos Exercises - Gluteal Sets - 1 x daily - 7 x weekly - 1 sets - 10 reps - 5 hold - Supine Heel Slide - 1 x daily - 7 x weekly - 1 sets - 10 reps - 5 hold - Supine Ankle Pumps - 1 x daily - 7 x weekly - 1 sets - 10 reps - 5 hold - Seated March - 1 x daily - 7 x weekly - 1 sets - 10 reps - 5 hold - Seated Long Arc Quad - 1 x daily - 7 x weekly - 1 sets - 10 reps - 5 hold Assessment: Patient requires use of a front wheeled walker to maximize independence and reduce fall risk. Patient presents with clinical signs and symptoms consistent with current/admitting diagnoses that have resulted to mobility limitations, gait instability, generalized weakness, and overall ADL decline as demonstrated by the following impairment level findings: 1. Decreased strength to R hip major muscle groups 2. Impaired standing balance 3. Impaired activity tolerance Impairments are contributing to the following functional limitations: 1. Difficulty with ambulation without assistive device Patient is assessed as a 58198 moderate complexity based on the following: History: 77-year-old female with past medical history as indicated above Examination: Demonstrable impairment in strength, balance, and mobility level with underlying impairments and functional limitations as exhibited above as well as deficit score of 0% utilizing the [facility] Mobility Inpatient Short Form Presentation: Evolving Decision Makin moderate complexity GGoals: N/A. PT evaluation and 1-2 treatment sessions only for functional mobility training using recommended AD and for HEP instruction. Plan of Care/Treatment Plan: N/A. PT evaluation and 1-2 treatment session only for functional mobility training using recommended AD and for HEP instruction. DISCHARGE RECOMMENDATIONS: Home when medically cleared by orthopedic surgeon. Recommend outpatient PT services to optimize functional mobility outcomes and facilitate return to independent community ambulation without an assistive device. TREATMENT CODE/TIME: 80263 x 25 minutes beginning at 9:25 AM. Thank you for the opportunity to participate in the care of this patient. Shannon Cavazos PT, DPT, CLT [facility] [place], [place]
--- NOTE | 2023-03-18 10:30 | PDOC.CMPRO ---
Date of service: 03/18/23 Time of Service: 10:31 Care Management Progress Note Progress Note Text Progress Note Text: Maribell was discharged early today before CM was able to meet with her. She had hip replacement surgery for surgical management of a right femoral neck fracture last evening. She did well poat-operatively and will discharge home with no new services.
== END 2023-03-18 10:09 | disposition home or self-care (01) | DRG 522 ==
LOC: ER 12:31 → MS 13:12
PROVIDERS: Admitting Provider Student in an Organized Health Care Education/Training Program; Emergency Provider Physician Assistant; PCP Nurse Practitioner Family; Visit Provider Student in an Organized Health Care Education/Training Program
PROC: 0SR904A Replacement of Right Hip Joint with Ceramic on Polyethylene Synthetic Substitute, Uncemented, Open Approach (ICD-10-PCS; CPT 27130; principal; 2023-03-17 15:45)
DX: S72.011A Unspecified intracapsular fracture of right femur, initial encounter for closed fracture (principal); W01.0XXA Fall on same level from slipping, tripping and stumbling without subsequent striking against object, initial encounter; H90.3 Sensorineural hearing loss, bilateral; Z87.440 Personal history of urinary (tract) infections; Z96.651 Presence of right artificial knee joint; Z96.642 Presence of left artificial hip joint
CPT/HCPCS: 27130; 20985; C1776; 73552; 76942; 80053; 85027; 87637; 97162; 99223; 71046; 73501; 73502; J0690; J1100; J2405; J2704

== ENCOUNTER 2023-03-31 11:59 | Outpatient (CLI) | payer MEDICARE, OTHER, SELFPAY ==
--- NOTE | 2023-03-31 11:20 | DI.RAD_ITS ---
Exam(s) XR HIP RT COMPLETE AP PELVIS EXAM: XR HIP RT COMPLETE AP PELVIS CLINICAL HISTORY: 1ST POST OP R STACY. TECHNIQUE: 2D digital imaging was performed. Two images were obtained. AP pelvis and lateral views were obtained. COMPARISON: XA XR HIP RT IN OR from 03/17/2023 CR XR HIP RT COMPLETE AP PELVIS from 03/17/2023 FINDINGS: BONES: There are stable post operative changes present. No fracture or dislocation. JOINTS: The orthopedic hardware is in good position. No evidence of hardware loosening. SOFT TISSUE: Normal. IMPRESSION: Stable postoperative changes. DATA REPOSITORY: RADIATION DOSE DELIVERED:
== END 2023-03-31 12:00 | disposition home or self-care (01) ==
LOC: DIORS 11:59
PROVIDERS: PCP Nurse Practitioner Family; Referring Provider Nurse Practitioner Family; Visit Provider Student in an Organized Health Care Education/Training Program
DX: Z96.641 Presence of right artificial hip joint (principal); Z47.1 Aftercare following joint replacement surgery
CPT/HCPCS: 73502

== ENCOUNTER 2023-05-02 10:15 | Outpatient (CLI) | payer MEDICARE, OTHER, SELFPAY ==
--- NOTE | 2023-05-02 10:00 | DI.RAD_ITS ---
Exam(s) XR KNEE RT 2V AP,LAT EXAM: XR KNEE RT 2V AP,LAT INDICATION: RIGHT KNEE PAIN. COMPARISON: CR XR KNEE RT 2V AP,LAT from 04/02/2021 TECHNIQUE: 2D digital imaging was performed. Two views. FINDINGS: There has been no change in the alignment of the total knee prosthesis. There are no suspicious surr ounding bony lucencies. DATA REPOSITORY: RADIATION DOSE DELIVERED:
== END 2023-05-02 10:16 | disposition home or self-care (01) ==
LOC: DIORS 10:15
PROVIDERS: PCP Nurse Practitioner Family; Referring Provider Nurse Practitioner Family; Visit Provider Physician Assistant
DX: Z96.651 Presence of right artificial knee joint (principal); Z47.1 Aftercare following joint replacement surgery; Z96.641 Presence of right artificial hip joint
CPT/HCPCS: 73560

== ENCOUNTER → 2023-06-13 09:42 | Outpatient (BNVA) | payer MEDICARE, OTHER, SELFPAY | PROVIDERS: PCP Nurse Practitioner Family; Referring Provider Nurse Practitioner Family; Visit Provider Student in an Organized Health Care Education/Training Program | DX: Z47.1 Aftercare following joint replacement surgery (principal); Z96.641 Presence of right artificial hip joint ==

== ENCOUNTER 2023-07-07 16:18 | Outpatient (CLI) | payer MEDICARE, OTHER, SELFPAY ==
[2023-07-07 12:18] LABS: Abs Immature Grans 0.04 10^3/uL (0.0-0.06); Absolute Basophil Count 0.05 10^3/uL (0.0-0.2); Absolute Eosinophil Count 0.15 10^3/uL (0.0-0.7); Absolute Lymphocyte Count 1.84 10^3/uL (1.2-3.4); Absolute Monocyte Count 0.73 10^3/uL (0.1-0.8); Absolute Neutrophil Count 7.78 10^3/uL (1.2-6.7); Basophils % 0.5; Eosinophils % 1.4; HCT 36.8 % (36.0-46.0); HGB 11.8 g/dL (11.2-15.7); Immature Grans % 0.4; Lymphocytes % 17.4; MCH 27.1 pg (27.0-33.0); MCHC 32.1 % (32.0-36.0); MCV 84 fL (80-95); Monocytes % 6.9; Neutrophils % 73.4; Platelet Count 241 10^3/uL (130-400); RBC 4.36 10^6/uL (3.93-5.22); RDW-SD 43.1 fL; WBC 10.59 10^3/uL (4.4-10.8)
[2023-07-08 10:24] LABS: Lyme Ab w Rflx to Lyme Confirm Negative (Negative)
[2023-07-10 00:34] LABS: Anaplasma phagocytophilum Negative (Negative); B. miyamotoi PCR Negative (Negative); Babesia divergens/MO-1 Negative (Negative); Babesia duncani Negative (Negative); Babesia microti Negative (Negative); Ehrlichia chaffeensis Negative (Negative); Ehrlichia ewingii/canis Negative (Negative); Ehrlichia muris eauclairensis Negative (Negative)
== END 2023-07-07 16:19 | disposition home or self-care (01) ==
LOC: LOS 16:19
PROVIDERS: PCP Nurse Practitioner Family; Visit Provider Nurse Practitioner Family
DX: R53.83 Other fatigue (principal); R59.9 Enlarged lymph nodes, unspecified
CPT/HCPCS: 36415; 87798; 85025; 86618